=== PATIENT | female | born 1955 | race Caucasian/White ===

== ENCOUNTER → 2017-06-18 | Emergency (ER) | payer MEDICARE, SELFPAY ==
[~2017-06-18] VITALS: Ht 175.3 cm; Wt 95.2 kg
[~2017-06-18] MED LIST: AMBIEN10 MG PO; CLONAZEPAM1 MG PO; CLONIDINE HCL0.2 MG PO; CYMBALTA30 MG PO; GABAPENTIN400 MG PO; GEODON60 MG PO; HUMALOG100 UNITS/ IV; HYDROCODON-ACE1 EA10 PO; INSULIN SYRING MISC; IPRATROPIU0.2 MG/1 M INH; LANTUS100 UNITS/ SUB-Q; LEVALBUTER1.25 MG/3 INH; LEVEMIR100 UNIT/1 SUB-Q; LITHIUM CARBON300 MG PO; METHOCARBAMOL750 MG PO; MINIPRESS5 MG PO; MIRALAX17 GM PO; NOVOLOG100 UNITS/ IV; NOVOLOG100 UNITS/ SUB-Q; OXYCODONE HCL E10 MG PO; OXYCODONE HCL10 MG PO; QUETIAPINE FUM200 MG PO; VENTOLIN HFA18 GM INH; WELLBUTRIN SR100 MG PO; ZOLPIDEM TARTRAT5 MG PO
== END | disposition home or self-care (01) ==
LOC: ED 15:38
DX: M54.2 Cervicalgia (principal); M43.22 Fusion of spine, cervical region; E11.9 Type 2 diabetes mellitus without complications; Z90.49 Acquired absence of other specified parts of digestive tract; Z98.51 Tubal ligation status; Z90.710 Acquired absence of both cervix and uterus; Z79.4 Long term (current) use of insulin; W18.30XA Fall on same level, unspecified, initial encounter
CPT/HCPCS: 72125; 99284

== ENCOUNTER 2018-02-04 07:44 | Observation (INO) | payer MEDICARE ==
[~2018-02-04] VITALS: Ht 175.3 cm; Wt 85.5 kg
--- OUTSIDE RECORDS SUMMARY | ~2018-02-04 | XMS | Clinical Summary ---
Demographics + + + | Address | [address] | | | [place] [address] | + + + | Home Phone | | + + + | Preferred Language | Unknown | + + + | Marital Status | Single | + + + | Congregation Affiliation | UNK | + + + | Race | White | + + + | Ethnic Group | Not or | + + + Author + + + | Organization | Unknown | + + + | Address | Unknown | + + + | Phone | Unavailable | + + + Support + + +---------+ + | Name | Relationship | Address | Phone | + + +---------+ + | HARRY FLANAGAN | ECON | Unknown | | + + +---------+ + Care Team Providers + +------+ + | Care Acid Retort Operator Name | Role | Phone | + +------+ + PP | Unavailable | + +------+ + Source Comments DARCIE is fully live on both [facility] and [facility] InPatient.[facility] Allergies Not on File Current Medications Not on file Active Problems Not on file Social History + +-------+ +--------+------+ | Tobacco Use | Types | Packs/Day | Years | Date | | | | | Used | | + +-------+ +--------+------+ | Never Assessed | | | | | + +-------+ +--------+------+ + + + | Sex Assigned at | Date Recorded | | | | + + + | Not on file | | + + + Plan of Treatment + + + + + | Health Maintenance | Due Date | Last Done | Comments | + + + + + | INFLUENZA VACCINE | | | | | (FLU SHOT) | 8 | | | + + + + + Results Not on filefrom Last 3 Months"
--- OUTSIDE RECORDS SUMMARY | ~2018-02-04 | XMS | Clinical Summary ---
Demographics + + + | Address | [address] | | | [place] [address] | + + + | Home Phone | | + + + | Preferred Language | Unknown | + + + | Marital Status | Single | + + + | Taoism Affiliation | UNK | + + + [...] Team Providers + +------+ + | Care Pneumatic Tester Mechanic Name | Role | Phone | + +------+ + PP | Unavailable | + +------+ + Source Comments DARCIE is fully live on both [facility] and [facility] InPatient.[facility] Allergies Not on File Current Medications [...]
--- OUTSIDE RECORDS SUMMARY | ~2018-02-04 | XMS | Clinical Summary ---
Demographics + + + | Address | [address] | | | [place] [address] | + + + | Home Phone | | + + + | Preferred Language | Unknown | + + + | Marital Status | Single | + + + | Mandaeism Affiliation | UNK | + + + [...] Team Providers + +------+ + | Care Health And Safety Manager Name | Role | Phone | + +------+ + PP | Unavailable | + +------+ + Source Comments DARCIE is fully live on both [facility] and [facility] InPatient.[facility] Allergies Not on File Current Medications Not [...]
[~2018-02-04 07:44] MED LIST changes: -GEODON60 MG PO; +GEODON80 MG NG; +MINIPRESS2 MG PO; -MINIPRESS5 MG PO; -OXYCODONE HCL E10 MG PO
[2018-02-04] MEDS ORDERED: LANTUS100 UNITS/ SUB-Q (08:09)
[2018-02-04] MEDS ORDERED: HUMULIN R500 UNIT/1 SUB-Q (08:09)
--- NOTE | 2018-02-04 11:19 | NUR ---
PT UP TO BEDSIDE COMMODE WITH STANDBY ASSIST. PT DENIES NAUSEA AND SOB AT THIS TIME. PT STEADY ON HER FEET, ABLE TO TRANSFER SELF EASILY, BACK TO BED. CALL LIGHT WITHIN REACH.
--- NOTE | 2018-02-04 11:27 | NUR ---
PT ARRIVED TO ROOM 127 VIA STRECHER FROM ER. PT TRANSFERRED TO BED PER SELF. MONITOR ON AND VITAL SIGNS TAKEN. ASSESSMENT COMPLETED, PT C/O OF HEADACHE AND ORDER RECEIVED FOR TYLENOL 650 MG PO. NS RUNNING AT 125 MLS/HR PER ORDER. INSULIN GTT STARTED AT 5 UNITS/HR. PT ORIENTED TO ROOM AND CALL LIGHT.
--- NOTE | 2018-02-04 12:03 | NUR ---
ASSESSMENT COMPLETED. ACCU CHECK 296, INSULIN GTT DECREASED TO 7.5 UNITS/HR. PT EATING CLEAR LIQ DIET.
[2018-02-04] MEDS ORDERED: EFFEXOR XR75 MG PO (12:16)
[2018-02-04] MEDS ORDERED: LITHIUM CARBON300 MG PO (12:17)
[2018-02-04] MEDS ORDERED: LEVOTHYROXINE25 MCG PO (12:21)
--- NOTE | 2018-02-04 13:48 | NUR ---
ACCU CHECK AT 1300 184, DR. MERCER NOTIFIED AND ORDERS RECEIVED. IV STARTED IN LEFT HAND AND INSULIN GTT RUNNING AT 3.6 UNITS/HR. D5 NS RUNNING IN RIGHT HAND AT 125/HR.
--- NOTE | 2018-02-04 14:12 | NUR ---
ACCU CHECK 147, INSULING GTT DECREASED TO 1.8 UNITS/HR
--- NOTE | 2018-02-04 14:50 | NUR ---
MED REC COMPLETE--KEPT THE INSULINS ON THE LIST REFERENCE EVEN THOUGH PATIENT HAS NOT TAKEN SINCE LAST YEAR.
--- NOTE | 2018-02-04 15:00 | NUR ---
PT UP TO BSC VOIDED AND HAD LARGE SOFT BROWN BM AFTER DULCOLAX SUPP GIVEN.
--- NOTE | 2018-02-04 16:31 | NUR ---
ASSESSMENT COMPLETED STATES HEADACHE PAIN "12/09". PT RESTING WITH HOB ELEVATED. BOYFRIEND IN ROOM. REMAINS ON INSULIN GTT NOW AT 3 UNITS/HR.
--- NOTE | 2018-02-04 17:19 | NUR ---
DR. MERCER NOTIFIED OF ACCU CHECK 126 AND CHANGE IN INSULIN GTT DOSE - 1.4 UNITS/HR. NEW ORDER TO DC INSULIN GTT AT THIS TIME. LAB HERE FOR BMP AND ACETONE DRAW.
--- NOTE | 2018-02-04 18:18 | NUR ---
LABS RESULTS CALLED TO DR. MERCER. ACETONE NEGATIVE, GLUCOSE 124. ORDERS RECEIVED TO DC IVF. FLUIDS DC'D AND FLUSHED WITH SALINE.
--- NOTE | 2018-02-04 19:15 | NUR ---
HANDOFF REPORT RECEIVED FROM EMMANUEL ALEXANDER. PT LYING ON SIDE, BREATHING NON LABORED, RR 15. HR 65. WILL CONTINUE TO MONITOR.
--- NOTE | 2018-02-04 19:55 | NUR ---
RECEIVED REPORT FROM EMMANUEL BUCIO. PT IS RESTING IN BED AT THIS TIME. WILL TAKE OVER CARE AT THIS TIME AND CONTINUE TO CLOSELY MONITOR.
--- NOTE | 2018-02-04 20:10 | NUR ---
IN TO COMPLETE PT ASSESSMENT. PT IS VERY DROWSY. PT OPENS EYES TO NAME, BUT ONLY KEEPS THEM OPEN FOR 5-10 SECONDS. PT WAS ABLE TO SQUEEZE MY HANDS AND REPLIED "NO" WHEN I ASKED IF HER BOYFRIEND WAS COMING BACK IN TONIGHT. PT IS NOT AWAKE ENOUGH TO TAKE MEDICATIONS AT THIS TIME. CHECKED PT BLOOD SUGAR- 231. BED ALARM ON FOR PATIENT SAFETY. PT RR IS 14 WITH SPO2 95%. WILL CONTINUE TO CLOSELY MONITOR.
--- NOTE | 2018-02-04 20:15 | NUR ---
CALLED MD TO UPDATE REGUARDING PT STATUS. UPDATED THAT PT IS VERY DRWOSY AND WILL ONLY KEEP HER EYES OPEN FOR 5-10 SECONDS BEFORE SHE FALLS BACK TO SLEEP. PT IS NOT ALERT ENOUGH TO SAFELY TAKE ANYTHING ORALLY INCLUDING MEDICATIONS & FOOD. PER MD HOLD ALL MEDICATIONS AT THIS TIME. HOLD INSULIN UNTIL PATIENT CAN TAKE PO. MD PLACED ORDER FOR CPAP IF NEEDED, PT ON ADMISSION STATES SHE HAS SLEEP APNEA AND WEARS CPAP AT HOME SOMETIMES. PT BOYFRIEND WAS UNABLE TO FIND HER MACHINE. WILL CONTINUE TO CLOSELY MONITOR AND REASSES PO INTAKE WHEN PATIENT IS MORE ALERT.
--- NOTE | 2018-02-04 21:11 | NUR ---
PT SET OFF BED ALARM, WAS SITTING AT SIDE OF BED WHEN I ENTERED ROOM. UP TO BSC, STEADY ON FEET, VOIDED 900ML AND THEN RETURNED TO BED. BED ALARM ON FOR SAFETY. PT DENIES FURTHER REQUESTS.
--- NOTE | 2018-02-04 22:41 | NUR ---
PT RESTING IN BED AT THIS TIME. BED ALARM ON. RR-20, SPO2 95% ON RA. WILL CONTINUE TO CLOSELY MONITOR.
--- NOTE | 2018-02-05 00:36 | NUR ---
PT ASSESSMENT UNCHANGED FROM PREVIOUS ASSESSMENT. PT IS MORE AWAKE THAN PRIOR IN THE SHIFT, BUT REMAINS DROWSY AND FALLS BACK TO SLEEP EASILY. WILL CONTINUE TO ENCOURAGE REST AT THIS TIME. BED ALARM ON AT THIS TIME FOR PATIENT SAFETY.
--- NOTE | 2018-02-05 02:00 | NUR ---
SALVAGE MACHINE OPERATOR IN TO DO LAB DRAW. PATIENT TOLERATED WELL. PT BACK TO SLEEP. PT MORE AWAKE THIS AM. WILL CONTINUE TO CLOSELY MONITOR.
--- NOTE | 2018-02-05 04:00 | NUR ---
PT WOKE AND CALLED TO HAVE FRESH WATER. PT STATES "I FEEL THE BEST I HAVE IN MONTHS, AND I WAS ABLE TO SLEEP". PT ASKING TO HAVE PHONE AT BEDSIDE. PT DENIES ANY QUESTIONS. WILL CONTINUE TO CLOSELY MONITOR AT THIS TIME.
--- NOTE | 2018-02-05 05:30 | NUR ---
PT UP TO BEDSIDE CAMMODE. PT IS VERY TALKATIVE THIS MORNING AND HOPEFUL TO GO HOME TODAY. PT DENIES ANY PAIN OR ISSUES AT THIS TIME. PT IS VERY THANKFUL FOR CARE AND PLEASANT. WILL CONTINUE TO CLOSELY MONITOR.
--- NOTE | 2018-02-05 06:01 | NUR ---
CALLED MD TO UPDATE REGUARDING PATIENTS STATUS THIS AM. PT IS AWAKE, ALERT, AND ORIENTED. PT IS ASKING WHEN THE DOCTOR WILL BE IN, SHE IS LOOKING FORWARD TO GOING HOME. PT BLOOD SUGAR 270'S, PER MD GIVE MORNING LEVIMIR AT THIS TIME. WILL CONTINUE TO CLOSELY MONITOR.
--- NOTE | 2018-02-05 07:30 | NUR ---
PT RESTING IN BED. BREAKFAST ORDERED. PT ASSISTED TO BATHROOM TO FRESHEN UP, REQUESTING TO TAKE SHOWER. PT STEADY WHILE AMBULATING. L & R HAND IV SITES ARE SALINE LOCKED AND FLUSH WELL. DISCUSSED MEDICATIONS AND DIETARY NEEDS.
--- NOTE | 2018-02-05 07:50 | NUR ---
DR. MERCER AT BEDSIDE
--- NOTE | 2018-02-05 09:00 | NUR ---
DISCUSSED WITH PT POSSIBLE [facility] SERVICE AVAILABLE TO HER. PROVIDED POINT OF CONTACT FOR ENROLLMENT OFFICE TO VERIFY ELIGIBILITY. DISCUSSED POSSIBLE COVERAGE THROUGH LOCAL [facility] AND POSSIBLE PHARMACY COVERAGE IF ELIGIBLE.
--- NOTE | 2018-02-05 10:25 | NUR ---
PT IN BED AND TALKING TO FAMILY MEMBER ON PHONE.
--- NOTE | 2018-02-05 12:28 | NUR ---
PT IS IN BED AND FAMILY MEMBERS AT BEDSIDE. UPDATED PT ON TRANSFER DELAY TO MED SURG FLOOR.
--- NOTE | 2018-02-05 13:49 | NUR ---
PT RESTING IN BED, ALERT AND ORIENTED. PT IS FEELING BETTER, FELT FREE TO DISCUSS HER LIFE WITH ME. PT FEELS A NEED TO BE DC'D SOON-HER BOYFRIEND IS ON DIALYSIS, AND SHE WANTS TO BE HELPING HIM. DISCUSSED THE TIMES SHE FEELS SHE IS "ALONE", AND WHAT HAPPENS TO HER IN THOSE MOMENTS. PT SEEMS TO HAVE BASIC MELODY IN GOD, SHARED SEVERAL BIBLE VERSES ON GOD'S PROMISE TO ALWAYS BE WITH US. EMOTIONAL REASONING IS AN ISSUE THAT TOO OFTEN SEEMS TO GUIDE HER THOUGHTS AND LEADS TO TOXIC DECISIONS. PRAYED WITH PT, SHE THANKED ME, WILL CONTINUE TO FOLLOW NEEDED
--- NOTE | 2018-02-05 15:56 | NUR ---
PT RESTING IN BED, C/O OF HEAD/NECK DISCOMFORT "02/06". MEDICATED WITH OXYCODONE 10 MG PO. ACCU CHECK 214.
--- NOTE | 2018-02-05 16:24 | NUR ---
AMBULATED TO SHOWER ROOM, AFTER SHOWERING PT AMBULATED BACK TO ROOM. ORAL CARE COMPLETED BY PT. PT RESTING IN CHAIR. VITAL SIGNS COMPLETED.
--- NOTE | 2018-02-05 18:04 | NUR ---
PT ARRIVED FROM CCU. REPORT TAKEN. ASSESSMENT DONE. PT ORIENTED TO ROOM AND HOW TO USE BED, CONTROLS, AND PHONE. PT VERBALIZES UNDERSTANDING. PT REPORTS FEELING "A LITTLE SWEETY." BLOOD SUGAR TAKEN AND FOUND TO BE 315. CCU RN CONSULTED AND STATES PT JUST RECIEVED INSULIN AND WILL BE FINE UNTIL NEXT DOSE AT BEDTIME. PT SITUATES SELF IN BED. BED RAILS UP X2. CALL LIGTH WITHIN REACH. PT BELONGINGS WITHIN REACH.
--- NOTE | 2018-02-05 18:42 | NUR ---
PT TRANSFERED TODAY TO MED/SURG AT 1800. HERE FOR DKA. INDEPENDANT IN ROOM, ADA DIET. PIV IN RIGHT AND LEFT HAND, SL. CBGS AT MEALS, BED TIME AND PRN. HX OF PERSONALITY DISORDER, MEDICATIONS INCLUDE LITHIUM. FREQUENT BACK AND NECK PAIN, PRN OXY. SENNA GIVEN TODAY. PT USES CALL LIGHT APPROPRIATLY.
--- NOTE | 2018-02-05 19:00 | NUR ---
RECEIVED REPORT FROM RN. PATIENT IS RESTING IN BED, BREATHING IS EVEN AND UNLABORED. REPORTS 2/10 PAIN IN HEAD AND NECK, DENIES NEED FOR PAIN MEDICATION AT THIS TIME. CALL LIGHT WITHIN REACH.
--- NOTE | 2018-02-05 22:00 | NUR ---
PATIENT RESTING IN BED, REPORTS 5/10 PAIN IN HEAD AND NECK, PRN TYLENOL AND OXYCODONE GIVEN PER EMAR. DENIES FURTHER NEEDS. ASSESSMENT DONE, CALL LIGHT WITHIN REACH.
--- NOTE | 2018-02-05 22:05 | NUR ---
PATIENT RESTING IN BED, BREATHING IS EVEN AND UNLABORED. REPORTS 5/10 PAIN IN NECK AND HEAD, PRN TYLENOL AND OXYCODONE GIVEN PER EMAR. DENIES FURTHER NEEDS. ASSESSMENT AND VITALS DONE. CALL LIGHT WITHIN REACH, VISITOR AT BEDSIDE.
--- NOTE | 2018-02-06 02:50 | NUR ---
PATIENT RESTING IN BED, BREATHING IS EVEN AND UNLABORED. FLACC SCORE OF 0. CALL LIGHT WITHIN REACH.
--- NOTE | 2018-02-06 04:02 | NUR ---
PATIENT RESTING IN BED, BREATHING IS EVEN AND UNLABORED. FLACC SCORE OF 0. APPEARS TO BE ASLEEP. CALL LIGHT WITHIN REACH.
--- NOTE | 2018-02-06 04:49 | NUR ---
PATIENT CALLED WANTING ROOM TEMP UP, WARM BLANKET PROVIDED.
--- NOTE | 2018-02-06 06:07 | NUR ---
PATIENT RESTING IN BED, REPORTS 5/10 PAIN IN HEAD AND NECK, PRN OXYCODONE AND TYLENOL GIVEN. DENIES FURTHER NEEDS. CALL LIGHT WITHIN REACH.
--- NOTE | 2018-02-06 07:24 | NUR ---
BEDSIDE REPORT FROM NIKOLAY, PT APPEARED TO BE SLEEPING, PT ALERT TO NURSES IN ROOM. PT ALERT AND ORIENTED. NO CONCERNS WITH CARE, PT REPORTS PAIN IS WELL MANAGED AT THIS TIME.
--- NOTE | 2018-02-06 07:30 | NUR ---
PATIENT RESTING IN BED, EYES CLOSED. PATIENT STATED SHE SLEPT WELL LAST NIGHT, AND DISCUSSED TAKING A SHOWER LATER IN THE DAY. CALL LIGHT IN REACH. NO OTHER NEEDS AT THIS TIME.
--- NOTE | 2018-02-06 08:43 | NUR ---
PATIENT RESTING IN BED ON THE PHONE. CALL LIGHT WITHIN REACH. NO OTHER NEEDS AT THIS TIME.
[2018-02-06] MEDS ORDERED: NOVOLIN N100 UNIT/1 SUB-Q (09:01)
[2018-02-06] MEDS ORDERED: INSULIN SYRING1 EA11 MISC (09:02)
[2018-02-06] MEDS ORDERED: HUMULIN R100 UNIT/1 INJ (09:06)
--- NOTE | 2018-02-06 10:00 | NUR ---
DAVID WITH PHARMACY AND THIS RN IN ROOM TO GIVE EDUCATION ON INSULIN. THIS RN GAVE EDUCAITON AND WROTE LAST DOSE NEXT DOSE ON DISCHARGE PAPERS. DISCUSSED [facility] PT RESOURCES IN COMMUNITY IF ANY SIGNS OR SYMPTOMS DEVELOPE THAT SHE NEEDS TO SEEK MEDICAL ASSISTANCE ([facility] OR [facility] AMUBLANCE IF EMERGENT OR TAXI TO [facility]. TO FOLLOW DISCHARGE INSTRUCTIONS TO MONITOR BLOOD GLUCOSE CHECKS CLOSELY AND ADMINSTER INSULIN ORDERED. PT REPORTS FEELING EMOTIONAL, AND IS CRYING. RN GAVE SUPPORTIVE EDUCAITON ON PAST CARE PLAN AND CURRENT CARE PLAN. SHE REPORTS FEELING A LOT BETTER AND CONFIDENT SHE WILL BE ABLE TO MANAGE HER CARE AT HOME. NO OTHER CONCERNS VOICED, PT ABLE TO VERBALIZE INSTRUCTIONS BACK. I.V. SITE OUT TIP INTACT WNL. PT REQUESTED TO AMBULATE TO FRONT OF HOSPITAL FOR TAXI CARE RIDE.
--- NOTE | 2018-02-06 10:00 | NUR ---
GAVE PT A GOOD RX CARD AND GAVE HER THE CASE MANAGEMENT PHONE NUMBER IN CASE THERE IS SOMETHING ELSE I CAN HELP HER WITH.
--- NOTE | 2018-02-06 10:10 | NUR ---
PT REQUEST BLOOD GLUCOSE CHECK, THIS IS DONE 384 READING. NOTIFIED. ORDER TO GIVE COVERAGE FROM SLIDING [employer] AND DISCHARGE PATIENT. 13 UNITS ASPART ADMINISTERED AND PT DISCHARGED PER MD ORDER
== END 2018-02-06 10:15 | disposition home or self-care (01) ==
LOC: ED 07:44 → CCU 07:46 → MS 02-05 17:40
PROVIDERS: ADMIT Internal Medicine
DX: E10.10 Type 1 diabetes mellitus with ketoacidosis without coma (principal); F60.3 Borderline personality disorder; M50.20 Other cervical disc displacement, unspecified cervical region; M51.26 Other intervertebral disc displacement, lumbar region; M79.7 Fibromyalgia; F51.04 Psychophysiologic insomnia; G89.4 Chronic pain syndrome; Z66 Do not resuscitate; Z88.8 Allergy status to other drugs, medicaments and biological substances; Z91.14 Patient's other noncompliance with medication regimen; Z98.1 Arthrodesis status; Z79.891 Long term (current) use of opiate analgesic; Z79.899 Other long term (current) drug therapy
CPT/HCPCS: 36415; 80048; 80053; 81001; 82010; 83690; 83735; 84100; 85025; 96361; 96372; 96374; 99285; G0378; J1650; J7030

== ENCOUNTER 2018-04-02 18:49 | Emergency (ER) | payer MEDICARE ==
[~2018-04-02] VITALS: Ht 175.3 cm; Wt 85.5 kg
[~2018-04-02 18:49] MED LIST changes: +EFFEXOR XR75 MG PO; +HUMULIN R100 UNIT/1 INJ; +HUMULIN R500 UNIT/1 SUB-Q; +INSULIN SYRING1 EA11 MISC; +LEVOTHYROXINE25 MCG PO; +NOVOLIN N100 UNIT/1 SUB-Q
[2018-04-02] MEDS ORDERED: HUMULIN R500 UNIT/1 SUB-Q (19:02)
[2018-04-02] MEDS ORDERED: LANTUS100 UNITS/ SUB-Q (19:04)
--- NOTE | 2018-04-02 21:12 | EKG ---
[facility] [address] [place] [address] Signed Normal sinus rhythm Septal infarct , age undetermined Abnormal ECG When compared with ECG of 22-NOV-2016 02:11, Septal infarct is now present Confirmed by PATRIA SHIRLEY MD ([id number]) on 04/02/2018 9:12:29 PM Electronically Signed By: PATRIA SHIRLEY MD 04/02/18 2112 PATIENT NAME: JAMES ENNIS BRYON Electrocardiogram DATE OF : 59 PHYSICIAN: PATRIA SHIRLEY MD REPORT #: [id number] REPORT IS CONFIDENTIAL AND NOT TO BE RELEASED WITHOUT AUTHORIZATION
== END 2018-04-02 22:08 | disposition home or self-care (01) ==
LOC: ED 18:49
DX: R07.89 Other chest pain (principal); E11.9 Type 2 diabetes mellitus without complications; Z88.8 Allergy status to other drugs, medicaments and biological substances; Z79.4 Long term (current) use of insulin; Z79.899 Other long term (current) drug therapy
CPT/HCPCS: 71045; 80053; 84484; 85025; 85379; 93005; 93010; 99284

== ENCOUNTER 2018-04-22 16:27 | Emergency (ER) | payer MEDICARE ==
[~2018-04-22] VITALS: Ht 175.3 cm; Wt 90.7 kg
== END 2018-04-22 16:41 | disposition home or self-care (01) ==
LOC: ED 16:27
DX: M79.672 Pain in left foot (principal)

== ENCOUNTER 2018-05-01 18:33 | Emergency (ER) | payer MEDICARE ==
[~2018-05-01] VITALS: Ht 175.3 cm; Wt 90.7 kg
[2018-05-01] MEDS ORDERED: GEODON80 MG NG (19:17)
[2018-05-01] MEDS ORDERED: WELLBUTRIN SR100 MG PO (19:17)
== END 2018-05-01 22:01 | disposition home or self-care (01) ==
LOC: ED 18:33
DX: L03.116 Cellulitis of left lower limb (principal); E11.65 Type 2 diabetes mellitus with hyperglycemia; Z91.14 Patient's other noncompliance with medication regimen; Z88.8 Allergy status to other drugs, medicaments and biological substances; Z79.4 Long term (current) use of insulin; Z79.899 Other long term (current) drug therapy
CPT/HCPCS: 36415; 73630; 80053; 85025; 99283; J1815

== ENCOUNTER 2019-08-20 18:13 | Emergency (ER) | payer MEDICARE, SELFPAY ==
[~2019-08-20] VITALS: Ht 175.3 cm; Wt 90.7 kg
--- OUTSIDE RECORDS SUMMARY | ~2019-08-20 | XMS | Clinical Summary ---
Demographics + + + | Address | [address] | | | [address] | | | [place] [address] | + + + | Home Phone | | + + + | Preferred Language | Unknown | + + + | Marital Status | | + + + | Oriental Orthodox Affiliation | 1013 | + + + | Race | Unknown | + + + | Ethnic Group | Unknown | + + + Author + + + | Author | [facility] | | | and [place] | + + + | Organization | [facility] | | | and [place] | + + + | Address | Unknown | + + + | Phone | Unavailable | + + + Support + + +---------+ + | Name | Relationship | Address | Phone | + + +---------+ + | Aracelis May | ECON | Unknown | | + + +---------+ + Care Team Providers + +------+ + | Care Certified Rehabilitation Counselor Name | Role | Phone | + +------+ + | Juan De La Rosa MD | PCP | | + +------+ + Allergies + + + + + + | Active Allergy | Reactions | Severity | Noted | Comments | | | | | Date | | + + + + + + | Statins | | | 09/21/20 | | | | | | 18 | | + + + + + + Medications No known medications Active Problems Not on file Social History + +-------+ +--------+------+ | Tobacco Use | Types | Packs/Day | Years | Date | | | | | Used | | + +-------+ +--------+------+ | Never Smoker | | | | | + +-------+ +--------+------+ + +---+---+---+ | Smokeless Tobacco: | | | | | Never Used | | | | + +---+---+---+ + + +---------+ + | Alcohol Use | Drinks/We | oz/Week | Comments | | | ek | | | + + +---------+ + | No | | | | + + +---------+ + + + + | Sex Assigned at | Date Recorded | | | | + + + | Not on file | | + + + + + + + | Job Start Date | Occupation | Industry | + + + + | Not on file | Not on file | Not on file | + + + + + + + + | Travel History | Travel Start | Travel End | + + + + + + | No recent travel history available. | + + Last Filed Vital Signs + + + + | Vital Sign | Reading | Time Taken | + + + + | Blood Pressure | 152/83 | 09/21/20181732 PST | + + + + | Pulse | 71 | 09/21/20181732 PST | + + + + | Temperature | 37.1 C (98.8 F) | 09/21/20181610 PST | + + + + | Respiratory Rate | 16 | 09/21/20181732 PST | + + + + | Oxygen Saturation | 100% | 09/21/20181732 PST | + + + + | Inhaled Oxygen | - | - | | Concentration | | | + + + + | Weight | 90.7 kg (200 lb) | 09/21/20181415 PST | + + + + | Height | 175.3 cm (5' 9") | 09/21/20181415 PST | + + + + | Body Mass Index | 29.53 | 09/21/20181415 PST | + + + + Plan of Treatment + + + + + | Health Maintenance | Due Date | Last Done | Comments | + + + + + | Hepatitis C | | | | | Screening | 8 | | | + + + + + | Vaccine: | | | | | Dtap/Tdap/Td (1 - | 7 | | | | Tdap) | | | | + + + + + | Cervical Cancer | | | | | Screening (Pap) | 8 | | | + + + + + | Colorectal Cancer | | | | | Screening | 8 | | | | (Colonoscopy) | | | | + + + + + | Vaccine: Zoster (1 | | | | | of 2) | 8 | | | + + + + + | Breast Cancer | | | | | Screening | 3 | | | + + + + + | Adult Annual | | | | | Wellness Visit | 8 | | | + + + + + | Vaccine: Influenza | | | | | (#1) | 9 | | | + + + + + Results Not on filefrom Last 3 Months Insurance + +--------+ +--------+ +---------+--------+ | Payer | Benefi | Subscriber | Effect | Phone | Address | Type | | | t Plan | ID | yury | | | | | | / | | Dates | | | | | | Group | | | | | | + +--------+ +--------+ +---------+--------+ | [employer] | HEALTH | [id number] | 10/30/19 | [phone] | | Medica | | | NET | 1 | 18-Pre | 1 | | re | | | MDCR | | sent | | | | | | PPO | | | | | | + +--------+ +--------+ +---------+--------+ + +--------+ +--------+ + + | Guarantor Name | Accoun | Relation to | Date | Phone | Billing Address | | | t Type | Patient | of | | | | | | | | | | + +--------+ +--------+ + + | Albertina Graves | Person | Self [birth year] | [address] | | | al/Fam | | 1956 | [phone] | [address] | | | antione | | | 0 (Home) | [place] [address] | + +--------+ +--------+ + + Advance Directives Patient has advance care planning documents on file. For more information, please contact:[facility] and [facility] [place] [address]
--- OUTSIDE RECORDS SUMMARY | ~2019-08-20 | XMS | Clinical Summary ---
Demographics + + + | Address | [address] | | | [place] [address] | + + + | Home Phone | | + + + | Preferred Language | Unknown | + + + | Marital Status | | + + + | Baptist Affiliation | UNK | + + + | Race | White | + + + | Ethnic Group | Not or | + + + Author + + + | Author | [facility] | + + + | Organization | [facility] | + + + | Address | Unknown | + + + | Phone | Unavailable | + + + Support + + +---------+ + | Name | Relationship | Address | Phone | + + +---------+ + | Nitish Case | ECON | Unknown | | + + +---------+ + Care Team Providers + +------+ + | Care Tricot Knitter Name | Role | Phone | + +------+ + | No Pcp Per Patient | PCP | Unavailable | + +------+ + Source Comments DARCIE is fully live on both [facility] Amb[facility] and [facility] InPatient.[facility] Allergies + + + + + + | Active Allergy | Reactions | Severity | Noted | Comments | | | | | Date | | + + + + + + | Zyiyflf-Ubd-Vad | Flushing | | 09/21/20 | Flu like symptoms | | Reductase Inhibitors | | | 18 | | + + + + + + Medications + + + +---------+------+------+-------+ | Medication | Sig | Dispensed | Refills | Star | End | Statu | | | | | | t | Date | s | | | | | | Date | | | + + + +---------+------+------+-------+ | oxyCODONE | Take 10 mg by mouth | | 0 | 04/1 | | Activ | | (immediate release) | every six hours as | | | 5/20 | | e | | 10 mg oral tablet | needed. | | | 19 | | | + + + +---------+------+------+-------+ | erythromycin 5 | Instill into both | | 1 | 04/0 | | Activ | | mg/gram (0.5 %) | eyes three times | | | 3/20 | | e | | ophthalmic (eye) | daily. | | | 19 | | | | ointment | | | | | | | + + + +---------+------+------+-------+ | metFORMIN 500 mg | Take 1,000 mg by | | 10 | 03/2 | | Activ | | oral tablet | mouth two times | | | 20 | | e | | | daily. | | | 19 | | | + + + +---------+------+------+-------+ | HUMULIN R U-500 | Inject 120 Units | | 1 | 04/ | | Activ | | (CONC) KWIKPEN 500 | under the skin | | | 2/20 | | e | | unit/mL (3 mL) | (SUBC) two times | | | 19 | | | | subcutaneous insulin | daily. | | | | | | | pen | | | | | | | + + + +---------+------+------+-------+ | prazosin 2 mg oral | Take 2 mg by mouth | | 0 | 03/2 | | Activ | | capsule | once daily. | | | 07/19 | | e | | | | | | 19 | | | + + + +---------+------+------+-------+ | ezetimibe 10 mg | Take 10 mg by mouth | | 9 | 02/ | | Activ | | oral tablet | once daily. | | | 11/18 | | e | | | | | | 19 | | | + + + +---------+------+------+-------+ | clonazePAM 1 mg | Take 1 mg by mouth | | 2 | 03/1 | | Activ | | oral tablet | as needed. | | | 03/18 | | e | | | | | | 19 | | | + + + +---------+------+------+-------+ | primidone 50 mg | Take 150 mg by mouth | | 5 | 01/28 | | Activ | | oral tablet | two times daily. | | | 05/18 | | e | | | | | | 19 | | | + + + +---------+------+------+-------+ | lithium carbonate | Take 300 mg by mouth | | 2 | 03/2 | | Activ | | 300 mg oral capsule | once daily in the | | | 07/19 | | e | | | evening. | | | 19 | | | + + + +---------+------+------+-------+ | venlafaxine XR 150 | Take 150 mg by mouth | | 2 | 03/2 | | Activ | | mg oral | once daily. | | | 07/19 | | e | | capsule,extended | | | | 19 | | | | release 24hr | | | | | | | + + + +---------+------+------+-------+ | venlafaxine XR 75 | Take 75 mg by mouth | | 2 | 03/2 | | Activ | | mg oral | once daily. | | | 07/19 | | e | | capsule,extended | | | | 19 | | | | release 24hr | | | | | | | + + + +---------+------+------+-------+ | ziprasidone 80 mg | Take 80 mg by mouth | | 2 | 04/0 | | Activ | | oral capsule | once daily in the | | | 01/16 | | e | | | evening. | | | 19 | | | + + + +---------+------+------+-------+ | zolpidem 10 mg | Take 10 mg by mouth | | 2 | 04/0 | | Activ | | oral tablet | once daily in the | | | 11/18 | | e | | | evening. | | | 19 | | | + + + +---------+------+------+-------+ | levothyroxine 25 | Take 25 mcg by mouth | | 0 | 04/0 | | Activ | | mcg oral tablet | once daily. 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 | + + + Family History + + +------+ + | Medical History | Relation | Name | Comments | + + +------+ + | Diabetes | Father | | | + + +------+ + | Leukemia | Father | | | + + +------+ + | Liver cancer | Father | | | + + +------+ + | Diabetes | Maternal | | | | | Grandfath | | | | | er | | | + + +------+ + | Diabetes | Maternal | | | | | Grandmoth | | | | | er | | | + + +------+ + | Diabetes | Mother | | | + + +------+ + | Heart Disease | Mother | | | + + +------+ + | Cancer | Paternal | | | | | Grandfath | | | | | er | | | + + +------+ + | Diabetes | Paternal | | | | | Grandfath | | | | | er | | | + + +------+ + | Diabetes | Paternal | | | | | Grandmoth | | | | | er | | | + + +------+ + + +------+--------+ + | Relation | Name | Status | Comments | + +------+--------+ + | Father | | | | + +------+--------+ + | Maternal Grandfather | | | | + +------+--------+ + | Maternal Grandmother | | | | + +------+--------+ + | Mother | | | | + +------+--------+ + | Paternal Grandfather | | | | + +------+--------+ + | Paternal Grandmother | | | | + +------+--------+ + Social History + +-------+ +--------+------+ | Tobacco [...] + +---------+ + | Alcohol Use | Drinks/Week | oz/Week | Comments | + + +---------+ + | No [...] Filed Vital Signs + + + + + | Vital Sign | Reading | Time Taken | Comments | + + + + + | Blood Pressure | 125/64 | 02/15/2019 9:35 AM | | | | | PDT | | + + + + + | Pulse | 77 | 02/15/2019 9:35 AM | | | | | PDT | | + + + + + | Temperature | - | - | | + + + + + | Respiratory Rate | 16 | 02/15/2019 9:35 AM | | | | | PDT | | + + + + + | Oxygen Saturation | 100% | 02/15/2019 9:35 AM | | | | | PDT | | + + + + + | Inhaled Oxygen | - | - | | | Concentration | | | | + + + + + | Weight | 91.5 kg (201 lb 12.8 | 02/15/2019 9:35 AM | | | | oz) | PDT | | + + + + + | Height | 172.7 cm (5' 8") | 02/15/2019 9:35 AM | | | | | PDT | | + + + + + | Body Mass Index | 30.68 | 02/15/2019 9:35 AM | | | | | PDT | | + + + + + Plan of Treatment + + + + + | Health Maintenance | Due Date | Last Done | Comments | + + + + + | Influenza (Flu) | | 09/06/2018, 07/20/2015, | | | vaccination (#1) | 9 | 08/25/2014, Additional history | | | | | exists | | + + + + + | Pneumococcal | Aged Out | | No longer eligible | | vaccination | | | based on patient's | | | | | age to complete this | | | | | topic | + + + + + Results Not on filefrom Last 3 Months Insurance + +--------+ +--------+ + +------+ | Payer | Benefi | Subscriber | Effect | Phone | Address | Type | | | t Plan | ID | yury | | | | | | / | | Dates | | | | | | Group | | | | | | + +--------+ +--------+ + +------+ | [employer] OPT | HEALTH | [phone] | 10/30/19 | [phone] | [address] | PPO | | MEDICARE | NET | | 19-Pre | 3 | [phone] | | | | MEDICA | | sent | | [place], | | | | RE PPO | | | | [place] | | | | | | | | [phone] | | + +--------+ +--------+ + +------+ + +--------+ +--------+ + + | Guarantor Name | Accoun | Relation to | Date | Phone | Billing Address | | | t Type | Patient | of | | | | | | | | | | + +--------+ +--------+ + + | Albertina Graves | Person | Self | [birth year] | [address] | | [place] | al/Fam | | 1956 | [phone] | [place] | | | antione | | | 0 (Home) | [id number] | + +--------+ +--------+ + +
--- OUTSIDE RECORDS SUMMARY | ~2019-08-20 | XMS | Encounter Summary ---
Demographics + + + | Address | [address] | | | [place] [address] | + + + | Home Phone | | + + + | Preferred Language | Unknown | + + + | Marital Status | | + + + | Muslim Affiliation | UNK | + + + | Race | White | + + + | Ethnic Group | Not or | + + + Author + + + | Author | [facility] | + + + | Organization | [facility] | + + + | Address | Unknown | + + + | Phone | Unavailable | + + + Support + + +---------+ + | Name | Relationship | Address | Phone | + + +---------+ + | Nitish Case | ECON | Unknown | | + + +---------+ + Care Team Providers + +------+ + | Care Music Worker Name | Role | Phone | + +------+ + | No Pcp Per Patient | PCP | Unavailable | + +------+ + Reason for Visit + + + | Reason | Comments | + + + | Surgery Questions | | + + + Encounter Details +--------+ + + + + | Date | Type | Department | Care Team | Description | +--------+ + + + + | 02/27/ | Telephone | Plastic and | Law Okeefe MD | Surgery Questions | | 2019 | | Reconstructive | [address] | | | | | Surgery at [facility] | [place], [place] | | | | | [address] | [address] | | | | | Mailcode: [facility] | [phone] | | | | | [facility] | | | | | | jarrod [place], | | | | | | [facility] | | | | | | [place], [place] | | | | | | [address] | | | | | | [phone] | | | +--------+ + + + + Social History + +-------+ +--------+------+ | [...] recent travel history available. | + + documented as of this encounter Plan of Treatment Not on filedocumented as of this encounter Visit Diagnoses Not on filedocumented in this encounter"
--- OUTSIDE RECORDS SUMMARY | ~2019-08-20 | XMS | Clinical Summary ---
Demographics + + + | Address | [address] | | | [address] | | | [place] [address] | + + + | Home Phone | | + + + | Preferred Language | Unknown | + + + | Marital Status | | + + + | Tenriism Affiliation | 1013 | + + + | Race | Unknown | + + + | Ethnic Group | Unknown | + + + Author + + + | Author | [facility] | | | and [place] | + + + | Organization | [facility] | | | and [...] Team Providers + +------+ + | Care Motor Coach Bus Driver Name | Role | Phone | + [...] +---------+--------+ | [employer] MEDICARE | HEALTH | [id number] | 10/30/19 | [phone] | | Medica [...] | | 0 (Home) | [place] [id number] | + +--------+ +--------+ + + Advance Directives Patient has advance care planning documents on file. For more information, please contact:[facility] [place] [address]
--- OUTSIDE RECORDS SUMMARY | ~2019-08-20 | XMS | Encounter Summary ---
Demographics + + + | Address | [address] | | | [place] [address] | + + + | Home Phone | | + + + | Preferred Language | Unknown | + + + | Marital Status | | + + + | Samaritan Affiliation | UNK | + + + | Race | White | + + + | Ethnic Group | Not or | + + + Author + + + | Author | [facility] | + + + | Organization | [facility] | + + + | Address | Unknown | + + + | Phone | Unavailable | + + + Support + + +---------+ + | Name | Relationship | Address | Phone | + + +---------+ + | Nitish Case | ECON | Unknown | | + + +---------+ + Care Team Providers + +------+ + | Care Explosives Mixer Operator Name | Role | Phone | + +------+ + PCP | Unavailable | + +------+ + Encounter Details +--------+ + + + + | Date | Type | Department | Care Team | Description | +--------+ + + + + | 11/09/ | Results | Endocrinology, | Dandre Polo MD | | | 2000 | Only | Diabetes and | [address] | | | | | Clinical Nutrition | [address] | | | | | [address] | [place], [place] | | | | | Rachel Mcduffie Mailcode: | [id number] | | | | | [facility] | [phone] | | | | | Clinic Building | | | | | | [place], [place] | | | | | | [address] | | | | | | [phone] | | | +--------+ + + + [...] Not on filedocumented as of this encounter Procedures + +--------+ + + + | Procedure Name | Priori | Date/Time | Associated Diagnosis | Comments | | | ty | | | | + +--------+ + + + | INSULIN ANTIBODY, | Routin | 11/09/2000 | | Results for this | | SERUM | e | 4:23 PM | | procedure are in the | | | | PST | | results section. | + +--------+ + + + | C-PEPTIDE, SERUM | Routin | 11/09/2000 | | Results for this | | | e | 4:23 PM | | procedure are in the | | | | PST | | results section. | + +--------+ + + + | INSULIN GROWTH | Routin | 11/09/2000 | | Results for this | | FACTOR-1, SERUM | e | 4:23 PM | | procedure are in the | | | | PST | | results section. | + +--------+ + + + | TESTOSTERONE, SERUM | Routin | 11/09/2000 | | Results for this | | | e | 4:23 PM | | procedure are in the | | | | PST | | results section. | + +--------+ + + + | INSULIN, SERUM | Routin | 11/09/2000 | | Results for this | | | e | 4:23 PM | | procedure are in the | | | | PST | | results section. | + +--------+ + + + | CORTISOL, SERUM | Routin | 11/09/2000 | | Results for this | | | e | 4:23 PM | | procedure are in the | | | | PST | | results section. | + +--------+ + + + documented in this encounter Results INSULIN ANTIBODY (11/09/2000 4:23 PM PST) + +-------+ + + + | Component | Value | Ref Range | Performed | Pathologist | | | | | At | Signature | + +-------+ + + + | INSULIN | < 2.0 | <5.1 U/mL | | | | ANTIBODIES | | | | | + +-------+ + + + + + | Specimen | + + | | + + + + + + + | Performing | Address | City/State/Zipcode | Phone Number | | Organization | | | | + + + + + | [facility] | [address] | [place], [place] | | | | | [address] | | + + + + + C-PEPTIDE (11/09/2000 4:23 PM PST) + + + + + + | Component | Value | Ref Range | Performed | Pathologist | | | | | At | Signature | + + + + + + | C-PEPTIDE, | 5.10 (H)Comment: | 0.40 - 2.10 | | | | SERUM | Adult - 2 hours | ng/mL | | | | | Post Sustacal: | | | | | | (1.2-3.4) | | | | | | ng/mL | | | | | | Adult - 2 hours Post | | | | | | Glucose: (2.0-4.5) | | | | | | ng/mL | | | | + + + + + + + + | Specimen | + + | | + + + + + + + | Performing | Address | City/State/Zipcode | Phone Number | | Organization | | | | + + + + + | [facility] | [address] | [place], [place] | | | | | [address] | | + + + + + INSULIN, SERUM (11/09/2000 4:23 PM PST) + + + + + + | Component | Value | Ref Range | Performed | Pathologist | | | | | At | Signature | + + + + + + | INSULIN | 69.0 (H)Comment: | <17.1 uU/mL | | | | | 4-12 hr Fast: | | | | | | Prepubertal | | | | | | < 2-13 uU/mL | | | | | | (Mean=5.9) | | | | | | Adults < | | | | | | 2-17 uU/mL | | | | | | (Mean=7.0) | | | | | | 2 hr Post Sustacal: | | | | | | Adults | | | | | | 7.6-26 uU/mL | | | | | | (Mean=15) | | | | | | 2 hr Post Glucose: | | | | | | Adults | | | | | | 15-53 uU/mL | | | | | | (Mean=31) | | | | + + + + + + + + | Specimen | + + | | + + + + + + + | Performing | Address | City/State/Zipcode | Phone Number | | Organization | | | | + + + + + | [facility] | [address] | [place], [place] | | | | | [address] | | + + + + + TESTOSTERONE (11/09/2000 4:23 PM PST) + +-------+ + + + | Component | Value | Ref Range | Performed | Pathologist | | | | | At | Signature | + +-------+ + + + | TESTOSTERON | 39 | <86 ng/dl | | | | E, SERUM | | | | | + +-------+ + + + + + | Specimen | + + | | + + + + + + + | Performing | Address | City/State/Zipcode | Phone Number | | Organization | | | | + + + + + | [facility] | [address] | [place] [address] | | | LABORATORY | | | | + + + + + CORTISOL, SERUM (11/09/2000 4:23 PM PST) + +-------+ + + + | Component | Value | Ref Range | Performed | Pathologist | | | | | At | Signature | + +-------+ + + + | CORTISOL, | 17 | 5 - 23 ug/dl | | | | TOTAL SERUM | | | | | + +-------+ + + + + + | Specimen | + + | | + + + + + | Narrative | Performed At | + + + | Cortisol Reference Ranges | | | AM Reference Range: 8 - 23 ug/dl | | | PM Reference Range: Less than 10 ug/dl | | + + + + + + + + | Performing | Address | City/State/Zipcode | Phone Number | | Organization | | | | + + + + + | [facility] | [address] | [place] [address] | | | LABORATORY | | | | + + + + + IGF-1 (11/09/2000 4:23 PM PST) + +-------+ + + + | Component | Value | Ref Range | Performed | Pathologist | | | | | At | Signature | + +-------+ + + + | IGF-1 | 100 | 90 - 360 ng/mL | | | + +-------+ + + + + + | Specimen | + + | | + + + + + + + | Performing | Address | City/State/Zipcode | Phone Number | | Organization | | | | + + + + + | [facility] | [address] | [place] [address] | | | LABORATORY | | | | + + + + + documented in this encounter Visit Diagnoses Not on filedocumented in this encounter"
--- OUTSIDE RECORDS SUMMARY | ~2019-08-20 | XMS | Encounter Summary ---
Demographics + + + | Address | [address] | | | [place] [address] | + + + | Home Phone | | + + + | Preferred Language | Unknown | + + + | Marital Status | | + + + | Sikhism Affiliation | UNK | + + + | Race | White | + + + | Ethnic Group | Not or | + + + Author + + + | Author | [facility] | + + + | Organization | [facility] | + + + | Address | Unknown | + + + | Phone | Unavailable | + + + Support + + +---------+ + | Name | Relationship | Address | Phone | + + +---------+ + | Nitish Case | ECON | Unknown | | + + +---------+ + Care Team Providers + +------+ + | Care Telephone Solicitor Name | Role | Phone | + +------+ + | No Pcp Per Patient | PCP | Unavailable | + +------+ + Reason for Referral PROC - Outpatient Surgery (Routine) +--------+--------+ + + + + | Status | Reason | Specialty | Diagnoses / | Referred By | Referred To | | | | | Procedures | Contact | Contact | +--------+--------+ + + + + | Closed | | Plastic | Diagnoses | [place], | Okeefe, | | | | Surgery | Cabrera's | MD Law | MD Law | | | | | palsy | [address] | [address] | | | | | 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 | Ave | | | | | lagophthalmo | [place], [place] | [place] | | | | | s left upper | [address] | [phone] | | | | | eyelid | Phone: | Phone: | | | | | Procedures | [phone] | [phone] | | | | | REQUEST TO | Fax: | Fax: | | | | | SURGERY | [phone] | [phone] | | | | | SSRS REPORT DEVELOPER | | | | | | | [place] CORRECT | | | | | | | LAGOPHTHALMO | | | | | | | S W IMPLANT | | | +--------+--------+ + + + + Reason for Visit + + + | Reason | Comments | + + + | New patient | eval eyelids- bells palsy | | consultation | | + + + Consultation (Routine) + +--------+ + + + + | Status | Reason | Specialty | Diagnoses / | Referred By | Referred To | | | | | Procedures | Contact | Contact | + +--------+ + + + + | Authorized | | Plastic | Diagnoses | [place], | Sary, | | | | Surgery | Cabrera's | MD Jazmyne | MD Law | | | | | palsy | [address] | | | | | [address] | Ave | | | | | | [place], [place] | [facility] [place] | | | | | | [address] | [address] | | | | | | Phone: | Phone: | | | | | | [phone] | [phone] | | | | | | Fax: | Fax: | | | | | | [phone] | [phone] | + +--------+ + + + + Encounter Details +--------+---------+ + + + | Date | Type | Department | Care Team | Description | +--------+---------+ + + + | 02/15/ | Office | Plastic and | Law Okeefe MD | Cabrera's palsy | | 2019 | Visit | Reconstructive | [address] | (Primary Dx) | | | | Surgery at [facility] [address] | [facility] [place] | | | | | [address] | [address] | | | | | Mailcode: [id number] | [phone] | | | | | [facility] | | | | | | and Healing, | | | | | | Building [address], 5th | | | | | | Floor [place], [place] | | | | | | [address] | | | | | | [phone] | | | +--------+---------+ + + + Social History + +-------+ [...] + + documented as of this encounter Last Filed Vital Signs + + + [...] + + + documented in this encounter Progress Notes Law Okeefe MD - 02/15/2019 9:30 AM PDT Plastic Surgery Clinic Note Referring provider: No Referring Provider Per Patient History of Present Illness: Albertina Polanco Case is a 63 year old female who presents in [facility] today to discuss 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 Yayo russo is most bothered by the dryness and irritation of her left eye, which can cause the eye t o frequently water. Albertina had no issues with her eye prior to her Cabrera's palsy diagnosis. e notes no significant changes or improvement in the appearance of the left eye/eyebrow or t he left side of the mouth over the past few months. Patient is also interested in potential treatments for facial rejuvenation to address asymm etry of wrinkles on the forehead that are only present on the right side. PMH: Past Medical History: Diagnosis Date Ankle fracture Diabetes (HCC) PSH: Past Surgical History Procedure Laterality Date Fixation of spine with fusion 2013 Hysterectomy 1983 Rotator cuff repair 2000 Excision of gall bladder 1985 Carpal tunnel release 2011 Repair, ankle 2013 Medications: clonazePAM 1 mg oral tablet, Take 1 mg by mouth as needed. erythromycin 5 mg/gram (0.5 %) ophthalmic (eye) ointment, Instill into both eyes three time s daily. ezetimibe 10 mg oral tablet, Take 10 mg by mouth once daily. HUMULIN R U-500 (CONC) KWIKPEN 500 unit/mL (3 mL) subcutaneous insulin pen, Inject 120 Unit s under the skin (SUBC) two times daily. levothyroxine 25 mcg oral tablet, Take 25 mcg by mouth once daily. lithium carbonate 300 mg oral capsule, Take 300 mg by mouth once daily in the evening. metFORMIN 500 mg oral tablet, Take 1,000 mg by mouth two times daily. oxyCODONE (immediate release) 10 mg oral tablet, Take 10 mg by mouth every six hours as nee ded. prazosin 2 mg oral capsule, Take 2 mg by mouth once daily. primidone 50 mg oral tablet, Take 150 mg by mouth two times daily. venlafaxine XR 150 mg oral capsule,extended release 24hr, Take 150 mg by mouth once daily. venlafaxine XR 75 mg oral capsule,extended release 24hr, Take 75 mg by mouth once daily. ziprasidone 80 mg oral capsule, Take 80 mg by mouth once daily in the evening. zolpidem 10 mg oral tablet, Take 10 mg by mouth once daily in the evening. Allergies: Allergies Allergen Reactions Paanbcf-Ygu-Bhx Reductase Inhibitors Flushing Flu like symptoms SH: Social History Substance Use Topics Smoking status: Never Smoker Smokeless tobacco: Never Used Alcohol use No Social History Narrative None on file FH: Family History Problem Relation Diabetes Mother Diabetes Father Leukemia Father ROS I reviewed the review of systems on the patient's intake form obtained for today s vi sit. The following pertinent positive ROS were noted: Depression, stress, anxiety, ear ache, runny nose, paralysis, tingling, weakness, joint pain, arthritis, SOB Physical Exam: BP 125/64 | Pulse 77 | Resp 16 | Ht 1.727 m (5' 8") | Wt 91.5 kg (201 lb 12.8 oz) | Sp O2 100% | BMI 30.68 kg/m | BSA 2.1 m General: A & O x 3, sitting in chair in NAD Absence of wrinkles on the affected (left) side of the face Weak but present left brow elevation Weak but present eyelid closure, incomplete Weak, but present left modiolus elevation Absent obicularis function on the left Absent lip depressor function on the left Normal Cabrera's reflex ASSESSMENT & PLAN: Physical exam revealed incomplete paralysis of the left side of the face. Patient noted emily t her eye is her largest area of concern at this time and I recommended that we initially ad dress this issue. A small weight may be placed in the patient's upper eyelid in attempts of pulling it down. The placement of the weight may be performed under local anaesthesia and sh ould cause for the patient's reported symptoms to subside, though she may still need to cont inue performing eye taping at night. The details and risks of the procedure were explained t o the patient. She expressed understanding and wishes to proceed. Patient lives in [place] and we will attempt to arrange for her to have the testing for the eyelid weight closer to home. I explained to the patient that I do not believe that any procedure is needed at this time to address the left eyebrow as physical exam revealed that she still has moderate function i n this area. If she would like to address the unevenness of wrinkles on her forehead, she ma y pursue Botox, but it would most likely not be covered by insurance. Regarding the asymmetry of the smile, I explained to the patient that nothing can be done a bout the current puckering of the lip. A rotational flap of anterior diagastric from the nec k may be used to create a more symmetric appearance of the mouth, but I recommended against this due to minimal effect from a large surgery. She was in agreement with this recommendati on. I spent 35 minutes with the patient. Greater than 50% of the time was spent counseling the patient regarding surgical correction of left facial palsy . I am Michael Wagner functioning as a scribe for Law Okeefe MD at 7:46 AM on 02/15/2019 I have reviewed and verified the above scribed note of my visit with this patient as record ed by Michael Wagner. documented in this enco unter Plan of Treatment Not on filedocumented as of this encounter Visit Diagnoses + + | Diagnosis | + + | Cabrera's palsy - Primary | + + documented in this encounter
--- OUTSIDE RECORDS SUMMARY | ~2019-08-20 | XMS | Encounter Summary ---
Demographics + + + | Address | [address] | | | [place] [address] | + + + | Home Phone | | + + + | Preferred Language | Unknown | + + + | Marital Status | | + + + | Cheondoism Affiliation | UNK | + + + | Race | White | + + + | Ethnic Group | Not or | + + + Author + + + | Author | [facility] | + + + | Organization | [facility] | + + + | Address | Unknown | + + + | Phone | Unavailable | + + + Support + + +---------+ + | Name | Relationship | Address | Phone | + + +---------+ + | Nitish Case | ECON | Unknown | | + + +---------+ + Care Team Providers + +------+ + | Care Commercial Lines Underwriter Name | Role | Phone | + [...] | | | | | lagophthalmo | [place] | [place] | | | | | s left upper | [address] | [phone] | | | | | eyelid | Phone: | Phone: | | | | | Procedures | [phone] | [phone] | | | | | REQUEST TO | Fax: | Fax: | | | | | SURGERY | [phone] | [phone] | | | | | PARTS COUNTERPERSON | | | | | | | [place] CORRECT | | | | | | [...] Ave | | | | | | [place], [place] | [facility] [place] | | | | | | [address] | [address] | | | | | | Phone: | Phone: | | | | | | [phone] | [phone] | | | | | | Fax: | Fax: | | | | | | [phone] | [phone] | + +--------+ + + + + [...] Dx) | | | | Surgery at [facility] [address] | [facility] [place] | | | | | [address] | [address] | | | | | Mailcode: CH5P | [phone] | | | | | [facility] | | | | | | and Healing, | | | | | | Building [address], [address]th | | | | | | Floor [place], [place] | | | | | | [address] | | | | | | [phone] | | | +--------+---------+ + + + [...] 63 year old female who presents in [facility] today to discuss treatment options for symptoms [...] in the evening. Allergies: Allergies Allergen Reactions Hpwpivm-Iwh-Bha Reductase Inhibitors Flushing Flu like symptoms SH: [...] and wishes to proceed. Patient lives in [place] and we will attempt to arrange for [...]
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
--- OUTSIDE RECORDS SUMMARY | ~2019-08-20 | XMS | Encounter Summary ---
Demographics + + + | Address | [address] | | | [place] [address] | + + + | Home Phone | | + + + | Preferred Language | Unknown | + + + | Marital Status | | + + + | Congregation Affiliation | UNK | + + + | Race | White | + + + | Ethnic Group | Not or | + + + Author + + + | Author | [facility] | + + + | Organization | [facility] | + + + | Address | Unknown | + + + | Phone | Unavailable | + + + Support + + +---------+ + | Name | Relationship | Address | Phone | + + +---------+ + | Nitish Case | ECON | Unknown | | + + +---------+ + Care Team Providers + +------+ + | Care Blocker And Cutter Contact Lens Name | Role | Phone | + [...] | | | [address] | [place], [place] | | | | | Rachel Mcduffie Mailcode: | [address] | | | | | [facility] Outpatient | [phone] | | | | | Clinic Building | | | | | | [place], [place] | | | | | | [address] | | | | | | [phone] | | | +--------+ + + + [...] + + + | [facility] | [address] | [place], [place] | | | | | [address] | | + + + + + [...] + + + | [facility] | [address] | [place], [place] | | | | | [address] | | + + + + + [...] + + + | [facility] | [address] | [place], [place] | | | | | [address] | | + + + + + [...] | + + + + + | [facility] | [address] | [place] [address] | | | LABORATORY | | | [...] | + + + + + | [facility] | [address] | [place] [address] | | | LABORATORY | | | [...] | + + + + + | [facility] | [address] | [place] [address] | | | LABORATORY | | | | + + + + + documented in this encounter Visit Diagnoses Not on filedocumented in this encounter"
--- OUTSIDE RECORDS SUMMARY | ~2019-08-20 | XMS | Encounter Summary ---
Demographics + + + | Address | [address] | | | [place] [address] | + + + | Home Phone | | + + + | Preferred Language | Unknown | + + + | Marital Status | | + + + | Zoroastrian Affiliation | UNK | + + + | Race | White | + + + | Ethnic Group | Not or | + + + Author + + + | Author | [facility] | + + + | Organization | [facility] | + + + | Address | Unknown | + + + | Phone | Unavailable | + + + Support + + +---------+ + | Name | Relationship | Address | Phone | + + +---------+ + | Nitish Case | ECON | Unknown | | + + +---------+ + Care Team Providers + +------+ + | Care Supervisor Building Maintenance Name | Role | Phone | + [...] | | | | | Surgery at [facility] [address] | [place], [place] | | | | | [address] | [address] | | | | | Mailcode: [facility] | [phone] | | | | | [facility] | | | | | | jarrod Nolasco, | | | | | | [facility] | | | | | | [place], [place] | | | | | | [address] | | | | | | [phone] | | | +--------+ + + + [...]
--- OUTSIDE RECORDS SUMMARY | ~2019-08-20 | XMS | Encounter Summary ---
Demographics + + + | Address | [address] | | | [place] [address] | + + + | Home Phone | | + + + | Preferred Language | Unknown | + + + | Marital Status | | + + + | Jew Affiliation | UNK | + + + | Race | White | + + + | Ethnic Group | Not or | + + + Author + + + | Author | [facility] | + + + | Organization | [facility] | + + + | Address | Unknown | + + + | Phone | Unavailable | + + + Support + + +---------+ + | Name | Relationship | Address | Phone | + + +---------+ + | Nitish Case | ECON | Unknown | | + + +---------+ + Care Team Providers + +------+ + | Care Trim Setter Helper Name | Role | Phone | + [...] as of this encounter Progress Notes Interface, Aircraft Tool Maker In - 09/02/2006 3:11 AM PSTCLINIC DATE: 11/09/2000 DIABETES CLINIC REFERRAL SOURCE: The patient is self-referred, but on recommendation of Dr. Russ Caceres who is her dray driver and still the person she views as her primary provider in [place]. This is despite the fact that she now lives in [place]. HISTORY OF PRESENT ILLNESS: Mrs. Polanco is [...] complains of blurred vision quite often. The shagger apparently found no evidence of diabetic retinopathy. [...] complications. SOCIAL HISTORY: The patient works for [employer] in [employer] REVIEW OF SYSTEMS: GENERAL: She denies any [...] her insulin. Dandre Polo M.D. AA / [id number] / [id number] / [id number] / cc: Aixa Caceres M.D. [address] [address] [id number] signed by Interface, Aircraft Tool Maker In at 09/02/2006 3:11 AM PSTdocume nted in this encounter Plan of Treatment Not on filedocumented as of this encounter Visit Diagnoses Not on filedocumented in this encounter
--- OUTSIDE RECORDS SUMMARY | ~2019-08-20 | XMS | Clinical Summary ---
Demographics + + + | Address | [address] | | | [place] [address] | + + + | Home Phone | | + + + | Preferred Language | Unknown | + + + | Marital Status | | + + + | Yazidism Affiliation | UNK | + + + [...] Team Providers + +------+ + | Care Lighter Captain Name | Role | Phone | + +------+ + | No Pcp Per Patient | PCP | Unavailable | + +------+ + Source Comments DARCIE is fully live on both [facility] Ambulatory and [facility] InPatient.[facility] Allergies + + + + + + | Active Allergy | Reactions | Severity | Noted | Comments | | | | | Date | | + + + + + + | [id number] | [place] | | 09/21/20 | Flu [...] | HEALTH | xxxxxxxxxxx | 10/30/19 | [phone] | [address] | PPO | | MEDICARE | NET | | 19-Pre | 3 | [phone] | | | | MEDICA | | sent | | [place], | | | | RE PPO | | | | [place] | | | | | | | | [phone] | | + +--------+ +--------+ + +------+ [...] al/Fam | | 1956 | [phone] | [place] | | | antione | | | 0 (Home) | [phone] | + +--------+ +--------+ + +
[~2019-08-20 18:13] MED LIST changes: +PREDNISONE20 MG PO; +ZOVIRAX800 MG PO
--- OUTSIDE RECORDS SUMMARY | 2019-08-20 18:16 | XMS ---
PreManage Notification: JAMES MANZANO Security Anesthesia Technician Events No recent Security Events currently on file CRITERIA MET - [facility] CARE PROVIDERS [facility] Current PHONE: Unknown [facility] Current PHONE: [phone] Juan Ramon has no Care Guidelines for this patient. Robert VISIT COUNT (12 MO.) 1 Elizabeth Jc TOTAL 3 NOTE: Visits indicate total known visits. 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
[2019-08-20] MEDS ORDERED: PRIMIDONE250 MG PO (18:29)
[2019-08-20] MEDS ORDERED: PROPRANOLOL HCL (18:29)
[2019-08-20] MEDS ORDERED: PROPRANOLOL HCL40 MG (18:30)
--- NOTE | 2019-08-21 18:12 | EKG ---
[facility] [address] [place], [place] [address] Signed Normal sinus rhythm Cannot rule out Anterior infarct , age undetermined Abnormal ECG Confirmed by KORY MERCER MD ([id number]) on 08/21/2019 6:12:38 PM Electronically Signed By: KORY MERCER MD 08/21/191811 PATIENT NAME: JAMES MANZANO Electrocardiogram DATE OF : 59 PHYSICIAN: KORY MERCER MD REPORT #: [id number] REPORT IS CONFIDENTIAL AND NOT TO BE RELEASED WITHOUT AUTHORIZATION
== END 2019-08-20 20:41 | disposition home or self-care (01) ==
LOC: ED 18:13
DX: S06.0X0A Concussion without loss of consciousness, initial encounter (principal); S00.83XA Contusion of other part of head, initial encounter; R42 Dizziness and giddiness; I10 Essential (primary) hypertension; E11.9 Type 2 diabetes mellitus without complications; Z88.8 Allergy status to other drugs, medicaments and biological substances; Z79.4 Long term (current) use of insulin; Z79.899 Other long term (current) drug therapy; W18.30XA Fall on same level, unspecified, initial encounter
CPT/HCPCS: 70450; 70486; 80053; 80178; 85025; 85610; 85730; 90471; 90715; 93005; 93010; 99284-25

== ENCOUNTER 2021-03-22 15:50 | Emergency (ER) | payer OTHER ==
[~2021-03-22] VITALS: Ht 175.3 cm; Wt 86.6 kg
[~2021-03-22 15:50] MED LIST changes: +PRIMIDONE250 MG PO; +PROPRANOLOL HCL; +PROPRANOLOL HCL40 MG
--- OUTSIDE RECORDS SUMMARY | 2021-03-22 15:52 | XMS ---
PreManage Notification: JAMES MANZANO Security Ethyl Blender Events No recent Security Events currently on file CRITERIA MET - [facility]ERS [facility] Current PHONE: [phone] Braydon Downing Current PHONE: Unknown Juan Ramon has no Care Guidelines for this patient. Robert VISIT COUNT (12 MO.) Rishi Jc TOTAL 1 NOTE: Visits indicate total known visits. ED/UCC VISIT TRACKING (12 MO.) 03/22/2021 15:50 [facility] [place] TYPE: Emergency COMPLAINT: - HEADACHES, BRUISING INPATIENT VISIT TRACKING (12 MO.) 09/03/2020 08:00 [facility] [place] TYPE: Urology DIAGNOSES: - Neoplasm of uncertain behavior of left kidney [id number]
[2021-03-22] MEDS ORDERED: LISINOPRIL10 MG PO (17:21)
[2021-03-22] MEDS ORDERED: AMANTADINE100 M1 PO (17:22)
[2021-03-22] MEDS ORDERED: PIOGLITAZONE HC30 MG PO (17:22)
[2021-03-22] MEDS ORDERED: PRAVASTATIN SOD20 MG PO (17:22)
[2021-03-22] MEDS ORDERED: EFFEXOR XR150 MG PO (17:22)
== END 2021-03-22 18:35 | disposition home or self-care (01) ==
LOC: ED 15:50
DX: R23.3 Spontaneous ecchymoses (principal); R51.9 Headache, unspecified; E11.9 Type 2 diabetes mellitus without complications; I10 Essential (primary) hypertension; E78.00 Pure hypercholesterolemia, unspecified; Z88.8 Allergy status to other drugs, medicaments and biological substances; Z79.899 Other long term (current) drug therapy; Z79.4 Long term (current) use of insulin
CPT/HCPCS: 70450; 80053; 85025; 85610; 85730; 99284-25

== ENCOUNTER 2021-10-22 14:29 | Emergency (ER) | payer OTHER ==
[~2021-10-22] VITALS: Ht 175.3 cm; Wt 90.7 kg
[~2021-10-22 14:29] MED LIST changes: +AMANTADINE100 M1 PO; +EFFEXOR XR150 MG PO; +LISINOPRIL10 MG PO; +PIOGLITAZONE HC30 MG PO; +PRAVASTATIN SOD20 MG PO
--- OUTSIDE RECORDS SUMMARY | 2021-10-22 14:32 | XMS ---
PreManage Notification: JAMES MANZANO Security Net Fisher Events No recent Security Events currently on file CRITERIA MET - [facility] CARE PROVIDERS Rico Del Angel [facility] Current PHONE: Unknown Braydon Downing Current PHONE: Unknown Juan Ramon has no Care Guidelines for this patient. Robert VISIT COUNT (12 MO.) 3 Elizabeth Jc TOTAL 5 NOTE: Visits indicate total known visits. ED/UCC VISIT TRACKING (12 MO.) 10/22/2021 14:[address] [facility] [place] TYPE: Emergency COMPLAINT: - FALL, NECK PAIN, POSS HEAD INJURY [facility] DIAGNOSES: - Multiple fractures of ribs, right side, subsequent encounter for fracture with routine healing - Rib Pain 08/11/2021 11:[facility] DIAGNOSES: - Emesis - Rib Pain - Vomiting, unspecified - Multiple fractures of ribs, right side, initial encounter for closed fracture - Rib Pain/Vomiitng 07/24/2021 20:[facility] DIAGNOSES: - vision trouble - Other visual disturbances - Vision Changes 03/22/2021 15:[address] [facility] [place] TYPE: Emergency COMPLAINT: - HEADACHES, BRUISING DIAGNOSES: - Spontaneous ecchymoses - Headache, unspecified - Pure hypercholesterolemia, unspecified - extermination inspector (current) use of insulin - Essential (primary) hypertension - Allergy status to other drugs, medicaments and biological substances - Spontaneous ecchymoses - Other nursing home (current) drug therapy - Type 2 diabetes mellitus without complications INPATIENT VISIT TRACKING (12 MO.) No inpatient visits to display in this time frame [email or web address]
[2021-10-22] MEDS ORDERED: MECLIZINE HCL25 MG PO (18:48)
--- NOTE | 2021-10-23 17:45 | EKG ---
[facility] [address] [facility] [place], [place] [address] Signed Normal sinus rhythm Normal ECG When compared with ECG of 20-AUG-2019 18:29, No significant change was found Confirmed by LESLEY JACOBO DO ([id number]) on 10/23/2021 5:45:41 PM Electronically Signed By: LESLEY JACOBO DO 10/23/21 1745 PATIENT NAME: JAMES MANZANO Electrocardiogram DATE OF : 59 PHYSICIAN: LESLEY JACOBO DO REPORT #: [id number] REPORT IS CONFIDENTIAL AND NOT TO BE RELEASED WITHOUT AUTHORIZATION
== END 2021-10-22 19:12 | disposition home or self-care (01) ==
LOC: ED 14:29
DX: S06.0X0A Concussion without loss of consciousness, initial encounter (principal); S10.93XA Contusion of unspecified part of neck, initial encounter; H81.399 Other peripheral vertigo, unspecified ear; W18.30XA Fall on same level, unspecified, initial encounter; E11.9 Type 2 diabetes mellitus without complications; Z88.8 Allergy status to other drugs, medicaments and biological substances; Z79.899 Other long term (current) drug therapy; Z79.4 Long term (current) use of insulin
CPT/HCPCS: 70450; 71045; 72125; 80048; 81001; 84484; 85025; 93005; 93010; 99284-25; A9270; G0480; J7040

== ENCOUNTER 2022-01-26 19:49 | Emergency (ER) | payer OTHER ==
[~2022-01-26] VITALS: Ht 172.7 cm; Wt 86.0 kg
[~2022-01-26 19:49] MED LIST changes: +MECLIZINE HCL25 MG PO
--- OUTSIDE RECORDS SUMMARY | 2022-01-26 19:52 | XMS ---
PreManage Notification: JAMES MANZANO Security Remote Broadcast Engineer Events No recent Security Events currently on file CRITERIA MET - [facility] CARE PROVIDERS Rico Del Angel [facility] Current PHONE: Unknown Juan De La Rosa Physical [facility] \T\ Rehabilitation 10/26/2021-Current PHONE: Unknown Braydon Downing Current PHONE: Unknown Juan Ramon has no Care Guidelines for this patient. E.D. VISIT COUNT (12 MO.) 3 Elizabeth Benedict [facility] 3 [facility] Jc TOTAL 6 NOTE: Visits indicate total known visits. ED/UCC VISIT TRACKING (12 MO.) 01/26/2022 19:50 [facility] [place] TYPE: Emergency COMPLAINT: - VOMITING 10/22/2021 14:30 [facility] [place] TYPE: Emergency COMPLAINT: - FALL, NECK PAIN, POSS HEAD INJURY DIAGNOSES: - Concussion without loss of consciousness, initial encounter - intermission coordinator (current) use of insulin - Contusion of unspecified part of neck, initial encounter - Fall on same level, unspecified, initial encounter - Other peripheral vertigo, unspecified ear - Allergy status to other drugs, medicaments and biological substances - Type 2 diabetes mellitus without complications - Dizziness and giddiness - Other long term care phlebotomist (current) drug therapy 09/02/2021 09:[address] [facility] [place] TYPE: Emergency DIAGNOSES: - Multiple fractures of ribs, right side, subsequent encounter for fracture with routine healing - Rib Pain 08/11/2021 11:[address] [facility] [place] TYPE: Emergency DIAGNOSES: - Emesis - Rib Pain - Vomiting, unspecified - Multiple fractures of ribs, right side, initial encounter for closed fracture - Rib Pain/Vomiitng 07/24/2021 20:[address] [facility] [place] TYPE: Emergency DIAGNOSES: - vision trouble - Other visual disturbances - Vision Changes 03/22/2021 15:[address] [facility] [place] TYPE: Emergency COMPLAINT: - HEADACHES, BRUISING DIAGNOSES: - Spontaneous ecchymoses - Headache, unspecified - Pure hypercholesterolemia, unspecified - intermission coordinator (current) use of insulin - Essential (primary) hypertension - Allergy status to other drugs, medicaments and biological substances - Spontaneous ecchymoses - Other penitentiary (current) drug therapy - Type 2 diabetes mellitus without complications INPATIENT VISIT TRACKING (12 MO.) No inpatient visits to display in this time frame [id number]
[2022-01-27] MEDS ORDERED: ONDANSETRON ODT8 MG PO (00:19)
== END 2022-01-27 00:41 | disposition home or self-care (01) ==
LOC: ED 19:49
DX: K29.50 Unspecified chronic gastritis without bleeding (principal); E11.9 Type 2 diabetes mellitus without complications; Z88.8 Allergy status to other drugs, medicaments and biological substances; Z79.899 Other long term (current) drug therapy; Z79.01 Long term (current) use of anticoagulants; Z79.4 Long term (current) use of insulin
CPT/HCPCS: 36415; 80053; 81001; 83735; 85025; 96374; 99284-25; A9270; J2405; J7030

== ENCOUNTER 2022-03-06 10:34 | Inpatient (IN) | payer MEDICARE ==
[~2022-03-06] VITALS: Ht 172.7 cm; Wt 92.5 kg
[~2022-03-06 10:34] MED LIST changes: +ONDANSETRON ODT8 MG PO
--- OUTSIDE RECORDS SUMMARY | 2022-03-06 10:36 | XMS ---
PreManage Notification: JAMES MANZANO Security Dial Equipment Engineer Events No recent Security Events currently on file CRITERIA MET - [facility] CARE PROVIDERS Rico Del Angel [facility] Current PHONE: Unknown Juan De La Rosa Physical Lela \T\ Rehabilitation 10/26/2021-Current PHONE: Unknown Braydon Downing Current PHONE: Unknown Juan Ramon has no Care Guidelines for this patient. E.D. VISIT COUNT (12 MO.) 3 Elizabeth Benedict M.C. 4 [facility] Jc TOTAL 7 NOTE: Visits indicate total known visits. ED/UCC VISIT TRACKING (12 MO.) 03/06/2022 10:34 [facility] [place] TYPE: Emergency COMPLAINT: - LOW B/P, BLURRED SIGHT, HEADACHE, SOB 01/26/2022 19:50 [facility] [place] TYPE: Emergency COMPLAINT: - VOMITING DIAGNOSES: - Other assisted (current) drug therapy - half-way (current) use of insulin - Unspecified chronic gastritis without bleeding - Type 2 diabetes mellitus without complications - Allergy status to other drugs, medicaments and biological substances - half-way (current) use of anticoagulants - Nausea with vomiting, unspecified 10/22/2021 14:30 [facility] [place] TYPE: Emergency COMPLAINT: - FALL, NECK PAIN, POSS HEAD INJURY DIAGNOSES: - Concussion without loss of consciousness, initial encounter - long term care social worker (current) use of insulin - Contusion of unspecified part of neck, initial encounter - Fall on same level, unspecified, initial encounter - Other peripheral vertigo, unspecified ear - Allergy status to other drugs, medicaments and biological substances - Type 2 diabetes mellitus without complications - Dizziness and giddiness - Other termite control service representative (current) drug therapy [facility] DIAGNOSES: - Multiple fractures of ribs, right side, subsequent encounter for fracture with routine healing - Rib Pain 08/11/2021 11:10 [facility] [place] TYPE: Emergency DIAGNOSES: - Emesis - Rib Pain - Vomiting, unspecified - Multiple fractures of ribs, right side, initial encounter for closed fracture - Rib Pain/Vomiitng 07/24/2021 20:12 [facility] DIAGNOSES: - vision trouble - Other visual disturbances - Vision Changes 03/22/2021 15:[address] [facility] [address] [facility] [place] TYPE: Emergency COMPLAINT: - HEADACHES, BRUISING DIAGNOSES: - Spontaneous ecchymoses - Headache, unspecified - Pure hypercholesterolemia, unspecified - long term care social worker (current) use of insulin - Essential (primary) hypertension - Allergy status to other drugs, medicaments and biological substances - Spontaneous ecchymoses - Other termite control service representative (current) drug therapy - Type 2 diabetes mellitus without complications INPATIENT VISIT TRACKING (12 MO.) No inpatient visits to display in this time frame [email or web address]
--- NOTE | 2022-03-06 15:30 | NUR ---
PT ARRIVES TO CCU ROOM 127 FROM ED, TRANSFERS SELF TO BED FROM [facility] BY SLIDING HERSELF OVER. PT ADMITTED FOR HYPOTENSION THAT HAS BEEN ONGOING OVER SEVERAL MONTHS AND WORSE YESTERDAY, PT ALSO HAD A FALL YESTERDAY.
--- NOTE | 2022-03-06 15:35 | NUR ---
ASSESSMENT DONE-PT IS ALERT AND ORIENTED, LUNGS CLEAR, PT CO SOB. ON ROOM AIR WITH SATS IN HIGH 90'S. C/O DIZZINESS AND A HEADACHE. HOB LOWERED. WILL CONT TO MONITOR BP'S AND GIVE IVF ORDERED. AWAITING IVF WITH BICARB FROM PHARMACY AND WILL HANG WHEN AVAILABLE. PLAN OF CARE DISCUSSED WITH PT AND QUESTIONS ANSWERED. PT SEEMS SOMEWHAT PERKY AND NOT ESPECIALLY WEAK, WAS ABLE TO MOVE HERSELF OVER TO BED WITH GOOD STRENGTH.
--- NOTE | 2022-03-06 15:40 | NUR ---
MANUAL BP CHECKED = 82/44. AUTOMATIC BP 88/48 (62). PT ARRIVED FROM ED WITH LR BOLUS INFUSING.
--- NOTE | 2022-03-06 15:44 | NUR ---
PT REQUESTING PAIN MEDICATION FOR HEADACHE AND NECK 05/08. WILL GIVE PRN OXYCODONE.
--- NOTE | 2022-03-06 16:09 | NUR ---
IN TO SEE PT.
--- NOTE | 2022-03-06 16:26 | NUR ---
BLOOD SUGAR 126
--- NOTE | 2022-03-06 18:07 | NUR ---
BPS HAVE IMPROVED, LAST BP 111/59 (72). UPDATE TO KWAME DIXON TO ADVANCE PT TO 60G ADA DIET. IN ROOM VISITING PT.
--- NOTE | 2022-03-06 19:30 | NUR ---
RECEIVED REPORT FROM DAY SHIFT RN. PT LAYING IN BED IN NO ACUTE DISTRESS. PT RESP EVEN AND UNLABORED. REPORTS HEADACHE AND CHRONIC NECK PAIN MEDICDATED WITH PRN PAIN MEDS. VSS CALL LIGHT WITHIN REACH WILL CONTINUE TO MONITOR
--- NOTE | 2022-03-06 23:32 | NUR ---
PT LAYING IN BED IN NO ACUTE DISTRESS. PT REPORTS FEELING WELL. VSS RESP EVEN AND UNLABORED. WILL CONTINUE TO MONITOR.
--- NOTE | 2022-03-07 02:08 | NUR ---
PT SLEEPING IN BED WITH EYES CLOSED . RESP EVEN AND UNLABORED. VSS NO SX OF ANY CONCERN. CALL LIGHT WITHIN REACH WILL CONTINUE TO MONITOR.
--- NOTE | 2022-03-07 05:10 | NUR ---
PT WAS SWABBED FOR COVID 19
--- NOTE | 2022-03-07 05:16 | NUR ---
PT AWAKE REPORTS NOT ABLE TO SLEEP MUCH, R.T INTO SWAB PT FOR ADMISSION COVID . PT RESP EVEN AND UNLABORED, DENIES ANY CONCERN AT THIS TIME. ASKING ABOUT BP 135/72 INFORMED PT THAT BP ARE STAYING UP . CALL LIGHT WITHIN REACH WILL CONTINUE TO MONITOR.
--- NOTE | 2022-03-07 07:45 | NUR ---
REPORT RECEIVED FROM RANDEE BENITEZ. PT LYING IN BED AWAKE. STATES SHE STILL HAS THE HEADACHE THAT SHE HAD YESTERDAY, DID NOT SLEEP AT ALL ALTHOUGH STOREROOM SUPERVISOR RN DID REPORT THAT SHE DID SLEEP SOME, AND THAT HER NAUSEA IS STARTING TO RETURN. WILL MEDICATE WITH ZOFRAN SOON. PLAN REGARDING COSYNTROPIN LAB DRAWS DISCUSSED AND PLAN FOR THE REST OF THE DAY. PT IS AGREEABLE AND HAS NO REQUESTS. REMINDED OF NEED FOR FASTING FOR LAB DRAW AND SHE STATES SHE IS NOT VERY HUNGRY RIGHT NOW.
--- NOTE | 2022-03-07 08:05 | NUR ---
LAB HAS JUST DRAWN BLOOD, COSYNTROPIN GIVEN. RST OF AM MEDS GIVEN AND PRN OXYCODONE 10MG GIVEN FOR 6/10 HEADACHE. PT IS CHEERFUL THIS MORNING, C/O ONLY THE HEADACHE AND NAUSEA. LUNGS HAVE VERY SLIUGHT EXP WHEEZE THROUGHOUT. IVF WITH BICARB CONT INFUSING AT 125ML/HR. CALL LIGHT IN REACH.
--- NOTE | 2022-03-07 08:21 | NUR ---
VITALS AND I&OS CHARTED. FACE AND HANDS WASHED. BROWNING EMPTIED.
[2022-03-07] MEDS ORDERED: AMBIEN10 MG PO (08:23)
[2022-03-07] MEDS ORDERED: GABAPENTIN300 MG PO (09:00)
[2022-03-07] MEDS ORDERED: ZANAFLEX4 MG PO (09:01)
[2022-03-07] MEDS ORDERED: HUMALOG KW200 UNIT/1 SUB-Q (09:02)
[2022-03-07] MEDS ORDERED: REPATHA SU140 MG/1 M SUB-Q (09:05)
[2022-03-07] MEDS ORDERED: BASAGLAR K100 UNIT/1 SUB-Q (09:07)
--- NOTE | 2022-03-07 09:10 | NUR ---
medications reconciled using pharmacy records and patient interview
--- NOTE | 2022-03-07 10:37 | NUR ---
4MG IV ZOFRAN GIVEN FOR CONTINUED NAUSEA. PT REPORTS THAT SHE FELT THE OXYCODONE "TOOK THE EDGE OFF" OF HER HEADACHE, COOL CLOTH GIVEN FOR FOREHEAD. PT HAS NO OTHER REQUESTS AT THIS TIME, PLAN DISCUSSED TO GIVE MEDICATION SOME TIME, REASSESS NAUSEA AND THEN GIVE A DIFFERENT MED NEEDED; CAN GIVE MORE PAIN MEDICATION AT 1200 AND PT OKAY WITH THIS PLAN.
--- NOTE | 2022-03-07 11:02 | NUR ---
PT REPORTS NAUSEA IS BETTER, WILL CALL IF SHE FEELS LIKE SHE NEEDS ADDITIONAL NAUSEA MEDICATION.
--- NOTE | 2022-03-07 11:58 | NUR ---
DR SHIRLEY IN TO SEE PT, PLAN TO TRANSFER PT TO [facility], BRENT BROWNING AND TAKE PT OFF PAPER TUBE CUTTER DISCUSSED WITH PT AND PT AGREEABLE, ALSO DISCUSSED GASTRIC EMPTYING STUDY AND NEED TO BE NPO.
--- NOTE | 2022-03-07 12:24 | NUR ---
IN TO ASK IF PT WANTS PAIN PILLS NUC MED TEST WILL BE TOMORROW, PT STATES "NO I'M DOING OKAY" AND WILL CALL IF SHE DOES WANT THEM LATER. ALSO INFORMED HER THAT SHE CAN EAT AND SHE STATES SHE WANTS TO EAT RIGHT NOW.
--- NOTE | 2022-03-07 13:00 | NUR ---
PT CALLS TO ASK FOR SOUP AND OXYCODONE. 10MG PRN OXYCODONE GIVEN ALONG WITH SOME CHICKEN SOUP.
--- NOTE | 2022-03-07 14:07 | EKG ---
[facility] [address] [facility] [address] [place], [place] [address] Signed Normal sinus rhythm Septal infarct , age undetermined Abnormal ECG No previous ECGs available Confirmed by PATRIA SHIRLEY MD ([id number]) on 03/07/2022 2:07:24 PM Electronically Signed By: PATRIA SHIRLEY MD 03/07/22 1407 PATIENT NAME: JAMES MANZANO Electrocardiogram DATE OF : 59 PHYSICIAN: PATRIA SHIRLEY MD REPORT #: [id number] REPORT IS CONFIDENTIAL AND NOT TO BE RELEASED WITHOUT AUTHORIZATION
--- NOTE | 2022-03-07 15:15 | NUR ---
BED BATH GIVEN, PT ASSISTED. UP TO CHAIR WITH CALL LIGHT IN HAND. NO COMPLAINTS AT THIS TIME.
--- NOTE | 2022-03-07 16:27 | NUR ---
IN TO CHECK ON PT, SHE C/O NAUSEA AND DRY HEAVING. 4MG IV ZOFRAN GIVEN AND PT ASSISTED BACK TO BED. DENIES NEED FOR PAIN MEDICATION AT THIS TIME.
--- NOTE | 2022-03-07 17:30 | NUR ---
PT REPORTS NAUSEA GONE AFTER ZOFRAN, WILL TRY EATING DINNER.
--- NOTE | 2022-03-07 18:43 | NUR ---
IN ROOM. PT WAS ABLE TO EAT ALL HER DINNER, NO C/O NAUSEA OR PAIN AT THIS TIME.
--- NOTE | 2022-03-07 21:59 | NUR ---
PT REPORTS NAUSEA AND DRIVE HEAVES, PRN ANITEMTIC GIVEN. GAVE PT CRACKERS AND JELLO. PT UP TO BATHROOM DENIES DIZZINESS. CALL LIGHT WITHIN REACH WILL CONTINUE TO MONITOR.
--- NOTE | 2022-03-08 00:17 | NUR ---
PT LAYING IN BED IN NO ACUTE DISTRESS, REPORTS FEELKING SLEEPY AND MIGHT NOT NEED PRN MEDS FOR INSOMNIA. VSS RESP EVEN AND UNLABORED. WILL CONTINUE TO MONITOR
--- NOTE | 2022-03-08 00:56 | NUR ---
PT UP TO BATHROOM TO VOID, DENIES ANY CONCERNS, VOIDING SUFFICENT. CALL LIGHT WITHIN REACH WILL CONTINUE TO MONITOR.
--- NOTE | 2022-03-08 02:22 | NUR ---
PT UP TO BATHROOM , REQUESTING I TURN OFF FLUIDS AND SHE HAS BEEN UP MULTIPLE TIMES THROUGH OUT NIGHT. PAUSED FLUIDS FOR AWHILE. PT VOIDING WELL. DENIES ANY OTHER CONCERNS AT THIS TIME. WILL CONTINUE TO MONITOR.
--- NOTE | 2022-03-08 04:27 | NUR ---
PT UP TO BATHROOM , DENIES ANY CONCERNS. ASKED ABOUT TAKING AMBIEN. INFORMED PT THAT ITS TO LATE TO TAKE AMBIEN AT THIS TIME. VSS BP WNL. CALL LIGHT WIHTIN REACH WILL CONTINUE TO MONITOR.
--- NOTE | 2022-03-08 07:30 | NUR ---
REPORT RECIEVED. PATIENT IS RESTING IN BED.
--- NOTE | 2022-03-08 10:45 | NUR ---
Spoke with Albertina. She states she is awaiting a test today. States more cancer has been found and also now has lump in her breast. Pt stating she really doesn't want more treatment. Pt plans on dc to home on release. Will update Dr. Morgan to see if he thinks this pt is ready for hospice.
--- NOTE | 2022-03-08 11:45 | NUR ---
VITALS CHARTED. PATIENT C/O HEADACHE, RN NOTIFIED. CALL LIGHT IN REACH, NO OTHER NEEDS AT THIS TIME
--- NOTE | 2022-03-08 12:18 | NUR ---
AWATING NECK MED TEST. C/O HEADACHE AND NECK PAIN.
--- NOTE | 2022-03-08 12:45 | NUR ---
TO [facility] VIA W/C.
--- NOTE | 2022-03-08 14:05 | NUR ---
REMAINS IN NUC MED.
--- NOTE | 2022-03-08 14:07 | NUR ---
PT TAKEN TO IMAGING. WILL FOLLOW
--- NOTE | 2022-03-08 14:10 | NUR ---
RETURN TO ROOM 127. RESTING IN BED FOR NOW. DENIES ANY NEEDS.
--- NOTE | 2022-03-08 19:03 | NUR ---
received patient from CCU about 15 minutes ago. Patient reports no needs, pain at 4/10 which is comfortable for her. Her vitals of stable, removed right hand IV access due to redness and pain.
--- NOTE | 2022-03-08 19:53 | NUR ---
REPORT RECEIVED FROM EMMANUEL MITCHELL. pt RESTING IN CHAIR AWAKE, ON CELL PHONE. IV SL. DENIES NEEDS. CALL LIGHT IN REACH.
--- NOTE | 2022-03-08 21:10 | NUR ---
pt RESTING IN BED AWAKE. ASSESSMENT COMPLETE. RATES PAIN 5-6/10 IN NECK. DENIES NEEDS FOR PRN MEDICATION AT THIS TIME. VSS. INDEPENDENT TO RESTROOM FOR VOID. URINE EMPTIED. IV SITE FLUSHED WNL, SL. PO FLUIDS PROVIDED. CBG 291, SS INSULIN ADMINISTERED WITH SUGAR FREE SNACK REQUESTED. CALL LIGHT IN REACH.
--- NOTE | 2022-03-08 22:45 | NUR ---
CALL LIGHT ANSWERED. PRN SLEEP MEDICATION ADMINSITERED AT THIS TIME. RESTING IN BED TALKING ON CELL PHONE. pt DENIES ADDITIONAL NEEDS. CALL LIGHT IN REACH.
--- NOTE | 2022-03-09 00:47 | NUR ---
pt RESTING IN BED. NO DISTRESS NOTED. LIGHTS OFF IN ROOM.
--- NOTE | 2022-03-09 03:30 | NUR ---
CHECKED ON pt. RESTING IN BED WITH EYES CLOSED. NO DISTRESS NOTED. LIGHTS OFF IN ROOM.
--- NOTE | 2022-03-09 06:21 | NUR ---
pt SLEEPING, AWAKENS TO VOICE. pt INSTRUCTED ON NPO STATUS FOR EGD. pt VERBALIZES UNDERSTANDING. VSS. ASSESSMENT COMPLETE. URINE EMPTIED FROM HAT. CALL LIGHT IN REACH. NO REQUESTS AT THIS TIME.
--- NOTE | 2022-03-09 06:45 | NUR ---
IN pt ROOM DISCUSSING EGD TODAY. pt QUESTIONS ANSWERED. CONSENT SIGNED AND ON CHART. IV SITE FLUSHED WNL, IVF INFUSING ORDERED BY MD. CALL LIGHT IN REACH.
--- NOTE | 2022-03-09 07:05 | NUR ---
REPORT RECIEVED FROM FORTUNATO BENITEZ. PT SITTING IN BED, STATES NO NEEDS AT THIS TIME. CALL LIGHT IN REACH.
--- NOTE | 2022-03-09 08:10 | NUR ---
IN ROOM TO ADMINISTER SCHEDULED MEDICATIONS, ASSESSMENT COMPLETE. PT A+0, LSC, HRR, BOWEL TONES ACTIVE. PT STATES "A LITTLE PAIN, BUT TOLERABLE" PT SKIN COOL AND PALE, CHRONIC NUMBNESS AND TINGLING IN FEET. IV WNL. NO FUTHER NEEDS AT THIS TIME. WILL CONTINUE PLAN OF CARE.
--- NOTE | 2022-03-09 09:52 | NUR ---
03/09/22 0952 Dianna Hadley 0941-PATIENT ARRIVED TO PACU ON 6L NC NONAROUSABLE. SR. IVF INFUSING. PATIENT COUGHING EYES CLOSED HOB RAISED AND PLACED ON 4L NC 95%
--- NOTE | 2022-03-09 10:20 | NUR ---
PT BACK TO MED SURG FROM OR. PT AWAKE A+O, ON RA, BREATHING EQUAL AND UNLABORED, VSS. IVF INFUSING WNL. PT STATES NO PAIN OR NAUSEA. PT UPDATED ON POC.
--- NOTE | 2022-03-09 10:57 | NUR ---
INFORMED PT IS TAKEN TO OR FOR SCOPE. WILL FOLLOW
--- NOTE | 2022-03-09 11:34 | NUR ---
Scheduled medications from am administered as patient is back from EGD and able to tolerate PO- verified with pharmacist. VSS, A+O. Dr Morgan in room to assess pt and updated on POC.
[2022-03-09] MEDS ORDERED: OMEPRAZOLE20 MG PO (11:39)
[2022-03-09] MEDS ORDERED: ONDANSETRON HCL4 MG PO (11:40)
--- NOTE | 2022-03-09 12:24 | NUR ---
DISCHARGE TEACHING PROVIDE. PT EDUCATED, VERBALIZES UNDERSTANDING AND HAS NO FURTHER QUESTIONS. IV REMOVED, CATHETER INTACT. PT TOLERATED LUNCH, REG DIET. NO FURTHER NEEDS AT THIS TIME.
--- NOTE | 2022-03-09 14:09 | NUR ---
PT ALERT, ORIENTED DRESSED AND SITTING ON COUCH ENJOYING THE SUN. PT IS READY FOR DC, BEGAN A DISCUSSION REQUESTING SUGGESTIONS FOR A [facility] HOME. GAVE PT IDEAS FOR ONLINE AND THEN SHE BEGAN TO SHARE HER LATEST DIAGNOSIS. PT NEEDS WISDOM AND DIRECTION FOR NEXT TREATMENT. REQUESTED PRAYER, GAVE ENCOURAGEMENT AND BLESSING. EMMANUEL MCCALL AND SN IN TO FINISH DC. WILL FOLLOW
--- NOTE | 2022-03-10 06:04 | CONS ---
[facility] [address] [place], [place] [address] Signed DATE OF CONSULTATION: 03/09/2022 CHIEF COMPLAINT: Early satiety. 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 She was initially from the [place], [place] area, but had moved to [place] for many years when her daughter was in school. She has come back to the [facility] and a long-time friend. He happens to go to dialysis three days a week. She herself is diabetic. She has having nausea, vomiting, and early satiety. She describes chronic constipation after her two children were born vaginally. She did not have constipation before the children were born. Unfortunately, one daughter . Just in the last week or two for whatever reason, she was more dehydrated. Her blood pressure was low and she was feeling lightheaded and finally came to the emergency room. She has responded nicely to IV fluids. Her renal function has improved. She is slightly anemic. She did have her left adrenal gland and kidney removed in 2019 in [place], [place] for clear cell cancer. She also describes having colonic polyps with multiple colonoscopies. She told me it is not uncommon to go three weeks without a bowel movement. She frequently has to digitally disimpact herself to go to the bathroom. She does not take a fiber supplement, but frequently uses polyethylene glycol. She has even taken an entire bowel prep with no results whatsoever and had to cancel colonoscopies. She said at some point, she is thinking she may go back down to [place], [place]. Unfortunately, she has no primary care provider here. She has been doing that long distance from [place]. She does have a installer helper that she works with here locally. She finally came to our emergency room for evaluation. She has been hydrated and doing much better. Her chest x-ray was unremarkable. The CT scan of abdomen and pelvis showed an 8 mm and a 9 mm nodule in the right lower lung. Obviously that needs to be followed up as an outpatient. She had her adrenal function checked and that is fine along with her thyroid function. Her gastric emptying scan was completely unremarkable. 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 Currently, James said she feels at her baseline, was wondering if she could go home today. PAST MEDICAL HISTORY: 1. Type 2 diabetes. 2. Chronic renal insufficiency. 3. Cervical and lumbar herniated disk. 4. Fibromyalgia. 5. New diagnosis of Parkinson disease. 6. Clear cell carcinoma of the left kidney. 7. Hypothyroidism. 8. Colonic polyps. 9. Depression. Electronically Signed By: AMINAH BRICEÑO MD 03/10/22 0604 PATIENT NAME: JAMES MANZANO CONSULTATION DATE OF : 59 REPORT #: [id number] PHYSICIAN: AMINAH BRICEÑO MD PCP: ELIA PAYTON PA-C REPORT IS CONFIDENTIAL AND NOT TO BE RELEASED WITHOUT AUTHORIZATION [facility] [address], [place] [address] Signed PAST SURGICAL HISTORY: 1. Bilateral tubal ligation followed by total abdominal hysterectomy. 2. Open cholecystectomy. 3. Left nephrectomy in 2019 along with adrenalectomy. 4. Cervical fusion with a cage placed. 5. Carpal tunnel release. 6. Left ankle surgery with metal remaining. 7. Multiple colonoscopies. SOCIAL HISTORY: She does not smoke or drink. She is now to her long-time friend who goes to dialysis three days a week. She had two daughters, both born vaginally, one unfortunately . She has made herself a DNR/DNI with no heroic measures. I think mainly when she was diagnosed with her renal cancer. It seems a little excessive currently, but she needs to discuss it with her primary care provider. 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 Dr. Gilles Escobar is her installer helper. Otherwise, her primary care provider and other specialists are in [place], [place]. FAMILY HISTORY: She said it is a large family with multiple medical issues. REVIEW OF SYSTEMS: She had 10 systems reviewed. Denies included all the pertinent positives in the above. ALLERGIES: Statins including simvastatin, atorvastatin, however she can take pravastatin. MEDICATIONS: 1. Zofran. 2. Oxycodone. 3. Pravastatin. 4. Effexor. 5. Levothyroxine. 6. Gabapentin/. 7. Polyethylene glycol. 8. Insulin. 9. Primidone. 10. Amantadine. 11. Pioglitazone/. 12. Pravastatin. 13. Albuterol. Electronically Signed By: AMINAH BRICEÑO MD 03/10/22 0604 PATIENT NAME: JAMES MANZANO CONSULTATION DATE OF : 59 REPORT #: [id number] PHYSICIAN: AMINAH BRICEÑO MD PCP: ELIA PAYTON PA-C REPORT IS CONFIDENTIAL AND NOT TO BE RELEASED WITHOUT AUTHORIZATION [address] [address] Signed PHYSICAL EXAMINATION: VITAL SIGNS: Her blood pressure 139/81, heart rate 71, respiratory rate 18, and temperature is 97.8. She is 99% on room air. She is 5 feet 8 inches tall and 92 kg. GENERAL: James is a 66-year-old female, lying supine in her hospital bed. Our nurse Keerthi is with us. She appears quite a bit older than her stated age. She is very cooperative and has actually a very good memory. No obvious Parkinson's tremors that I can see currently. No shortness of breath or dyspnea during our conversation. LUNGS: Appear to be clear to auscultation bilaterally. HEART: Regular rate and rhythm without murmurs. ABDOMEN: Actually, soft, flat, and nontender. She tells me it is at baseline. RECTAL: Exam is not performed today. LABORATORY DATA: Her white count was 10.2, it is now 6.6, her hemoglobin was 12.3, it is now 11.0. Her neutrophils were 76, they are down to 67. Platelets are 145. BUN was 44, it is now 25. The creatinine was 2.59, it is now 1.49. Her blood sugars are running anywhere from 149-291. The urine specific gravity was high on admission at 1.030. Liver function tests are negative. EKG showed normal sinus rhythm. Her albumin was 3.8. The hemoglobin A1c was high at 8.3. Her lactic acid was high at 4.3, it dropped to 2.5, I am sure by now it has normalized. The lipase was normal at 30. The COVID test was negative. RADIOGRAPHIC STUDIES: Chest x-ray was unremarkable. The CT scan of abdomen and pelvis showed the 8 mm and 9 mm right lower lobe lung nodules, but no other serious findings. The gastric emptying scan was unremarkable. ASSESSMENT AND PLAN: James is a 66-year-old female, who presents as above. It sounds like she has a pelvic outlet obstruction leading to her chronic constipation. That is certainly can be dealt with as an outpatient with advance testing. For whatever reason, she is having some acute on chronic nausea, vomiting, and early satiety. There are certainly multiple reasons why she could have that. However, the gastric emptying scan was not concerning. I have been asked to do an upper endoscopy for her today. From what she tells me, it would be her first upper endoscopy. I reviewed with her in detail relative to her previous colonoscopies. She understands the need for the sedation. Her will be on dialysis today, not be able to take her home later today. We will be able to add her on later this morning with the help of monitored anesthesia care. We will take biopsies and eventually she will come back to her room. There is risk including, but not limited to gas bloating, crampy abdominal pain, bleeding, perforation requiring surgery, and missed diagnosis. She has expressed understanding, agrees with above plan. In the meantime, she is hoping to establish with a primary care provider here in [facility]. Electronically Signed By: AMINAH BRICEÑO MD 03/10/22 0604 PATIENT NAME: JAMES MANZANO CONSULTATION DATE OF : 59 REPORT #: [id number] PHYSICIAN: AMINAH BRICEÑO MD PCP: ELIA PAYTON PA-C REPORT IS CONFIDENTIAL AND NOT TO BE RELEASED WITHOUT AUTHORIZATION [facility] [address] [place] [address] Signed Aminah Briceño MD ALB/MODL /[id number] cc: DO Aminah Zelaya MD Copies: GILLES ESCOBAR ANDREW L MD ~ Electronically Signed By: AMINAH BRICEÑO MD 03/10/22 0604 PATIENT NAME: JAMES MANZANO CONSULTATION DATE OF : 59 REPORT #: [id number] PHYSICIAN: AMINAH BRICEÑO MD PCP: ELIA PAYTON PA-C REPORT IS CONFIDENTIAL AND NOT TO BE RELEASED WITHOUT AUTHORIZATION
--- NOTE | 2022-03-10 06:04 | OR ---
[facility] [address] [place], [place] [address] Signed DATE OF OPERATION: 03/09/2022 SURGEON: Aminah Briceño MD PREOPERATIVE DIAGNOSES: 1. Early satiety. 2. Nausea and vomiting. 3. Esophageal dysphagia. 4. Cough. POSTOPERATIVE DIAGNOSES: 1. Moderate diffuse hemorrhagic gastritis. 2. Moderate-sized hiatal hernia. PROCEDURE: EGD with CLOtest and biopsies of the duodenum and antrum. ESTIMATED BLOOD LOSS: None. INDICATIONS: James is a 66-year-old obese diabetic female, who lived in [place], [place] for many years. She has returned back to [place], [place]. She is now . She has had longstanding diabetes. She has been talking about chronic dry cough. After our procedure today, she mentioned acid reflux. She talks about having early satiety with nausea and vomiting. She also was mentioning esophageal dysphagia. Interestingly for all of her medical issues, I do not see any medicine listed for her stomach. 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 In the meantime, her dehydration has been reversed. Her renal functions recovered and she is doing much better. She actually was telling me she felt at her baseline. I can see she is slightly anemic with a hemoglobin of 11.0. I had met with her this morning and had a long discussion with her and reviewed her records. She has been through multiple colonoscopies and had colonic polyps removed. As a result, she is familiar with this process. I reviewed with her upper endoscopy in detail. There is risk including, but not limited to gas bloating, crampy abdominal pain, bleeding, perforation requiring surgery, and missed diagnosis. Also, given her acute situation and her advanced medical issues, we asked for monitored anesthesia care. That proved to be a aguilar decision as she coughed during much of the case. She had expressed understanding and wished to proceed. Electronically Signed By: AMINAH BRICEÑO MD 03/10/22 0604 PATIENT NAME: JAMES MANZANO OPERATIVE REPORT DATE OF : 59 REPORT #: [id number] PHYSICIAN: AMINAH BRICEÑO MD PCP: ELIA PAYTON PA-C REPORT IS CONFIDENTIAL AND NOT TO BE RELEASED WITHOUT AUTHORIZATION [facility] [address] [place] [address] Signed PROCEDURE NOTE: James was taken into our endoscopy suite and placed in the supine semi-recumbent position. with our anesthesia provider, she made it very clear that she is a DNR and DNI with no heroic measures. She told us the POLST form is with her primary care provider in [place], [place]. We therefore had her sign a waiver just for the procedure and 30 minutes in recovery room. A bite block was utilized for the case. She was given monitored anesthesia care with propofol infusion. The adult gastroscope was introduced and advanced under direct visualization of camera without difficulty. The duodenum was unremarkable. We took a single biopsy of the duodenum for pathologic review. The pyloric bulb did show some mild erythematous changes as well. There were no ulcers in the bulb. The stomach showed no ulcers. However, the stomach showed moderate diffuse hemorrhagic gastritis. I am sure that is contributing to her anemia and her sensation of early satiety. Upon retroflexion of the scope, I could see a moderate-sized hiatal hernia. I withdrew the scope up through the area of the GE junction, which was compliant without stricture. It was difficult to measure the hiatal hernia due to her repetitive coughing. I am estimating about 4 cm. Her Z-line is actually relatively intact. Just a little bit of irritation. There was no Dove's mucosa. No esophageal or gastric varices. No inflammatory changes in her distal esophagus. The middle and upper esophagus were unremarkable. After this, the gas was suctioned out and the gastroscope removed. James tolerated the procedure quite well. RECOMMENDATIONS: James will return to her hospital bed on the Internal Medicine Service. We will start her on Protonix 40 mg p.o. b.i.d. She can resume her diabetic diet. Aminah Briceño MD ALB/MODL /[id number] cc: DO Aminah Zelaya MD Copies: MYNOR VILLAFANA DO Electronically Signed By: AMINAH BRICEÑO MD 03/10/22 0604 PATIENT NAME: JAMES MANZANO OPERATIVE REPORT DATE OF : 59 REPORT #: [id number] PHYSICIAN: AMINAH BRICEÑO MD PCP: ELIA PAYTON PA-C REPORT IS CONFIDENTIAL AND NOT TO BE RELEASED WITHOUT AUTHORIZATION [address] [address] Signed AMINAH BRICEÑO MD ~ Electronically Signed By: AMINAH BRICEÑO MD 03/10/22 0604 PATIENT NAME: JAMES MANZANO OPERATIVE REPORT DATE OF : 59 REPORT #: [id number] PHYSICIAN: AMINAH BRICEÑO MD PCP: ELIA PAYTON PA-C REPORT IS CONFIDENTIAL AND NOT TO BE RELEASED WITHOUT AUTHORIZATION
--- NOTE | 2022-03-11 11:34 | PATH ---
[facility] [address] [place], [place] [address] Signed THIS IS AN ADDENDUM REPORT SPECIMEN(S): A DUODENAL BIOPSY SPECIMEN(S): B ANTRUM/PYLORUS BIOPSY SPECIMEN SOURCE: A. DUODENAL BIOPSY B. ANTRUM/PYLORUS BIOPSY CLINICAL HISTORY: Chronic constipation, vomiting, dysphagia, hypotension. Postop: Gastritis, gastroduodenitis, hiatal hernia. FINAL PATHOLOGIC DIAGNOSIS: A. Duodenum, biopsy: - Duodenal mucosa with focal prominent Martín's glands. - Negative for increased intraepithelial lymphocytes or villous blunting. - Negative for dysplasia or malignancy. B. Stomach, antrum/pylorus, biopsy: - Antral mucosa with chronic, inactive gastritis and reactive gastropathy. - Negative for Helicobacter organisms on HE stain. - Negative for dysplasia or malignancy. - See comment. COMMENT: Regarding specimen B: An H. pylori immunohistochemical stain is pending and will be reported in an addendum. NAL:cml:C2NR MICROSCOPIC EXAMINATION: Histologic sections of all submitted blocks are examined by light microscopy. These findings, together with the gross examination, support the pathologic diagnosis. GROSS DESCRIPTION: Two specimens are received in two containers, labeled "RM." A. The specimen, labeled "RM, duodenal biopsy," is received in formalin and consists of one taylor soft tissue fragment that measures 0.2 cm in greatest dimension. The specimen is entirely submitted in cassette (A1). B. The specimen, labeled "RM, antrum biopsy," is received in formalin and PATIENT NAME: JAMES MANZANO PATHOLOGY DATE OF : 59 REPORT #: [id number] PHYSICIAN: ALVARO CHATMAN PCP: ELIA PAYTON PA-C REPORT IS CONFIDENTIAL AND NOT TO BE RELEASED WITHOUT AUTHORIZATION [facility] [address] [place] [id number] Signed consists of one taylor soft tissue fragment that measures 0.2 cm in greatest dimension. The specimen is entirely submitted in cassette (B1). JS (under the direct supervision of a pathologist) The Gross Description was prepared using a voice recognition system. The report was reviewed for accuracy; however, sound-alike word errors, addition and/or deletions may occur. If there is any question about this report, please contact Client Services. PERFORMING LABORATORY: The technical component was performed by [facility], [address] [place] [id number] (CLIA# [id number]). [facility], [address] [place] [address] (CLIA# [id number]). ADDITIONAL NOTES: Immunohistochemical and/or in situ hybridization studies were performed on this case with the appropriate positive controls that react as expected. This test was developed and its performance characteristics determined by [facility]. It has not been cleared or approved by the U.S. Food and Drug Administration. The FDA has determined that such clearance or approval is not necessary. This test is used for clinical purposes. It should not be regarded as investigational or for research. [facility] is certified under the Clinical Laboratory Improvement Amendments of 1988 (CLIA) as qualified to perform high complexity clinical laboratory testing. This assay has not been validated for specimens that have been decalcified. The technical component was performed by [facility], [address] [place] [id number] (CLIA# [id number]). Professional interpretation was performed by [facility], [address] [address] (CLIA# [id number]). REASON FOR ADDENDUM: To add results of additional testing. ADDENDUM PATHOLOGIC DIAGNOSIS: Regarding specimen B: - An H. pylori immunohistochemical stain (with appropriately staining controls) is negative for Helicobacter organisms. PATIENT NAME: JAMES MANZANO PATHOLOGY DATE OF : 59 REPORT #: [id number] PHYSICIAN: ALVARO CHATMAN PCP: ELIA PAYTON PA-C REPORT IS CONFIDENTIAL AND NOT TO BE RELEASED WITHOUT AUTHORIZATION [facility] [address] [place], [place] [address] Signed NAL:cml Diagnostician: Karen Alonso MD Pathologist Electronically Signed 03/11/2022 Copies: ~ PATIENT NAME: JAMES MANZANO PATHOLOGY DATE OF : 59 REPORT #: [id number] PHYSICIAN: ALVARO CHATMAN PCP: ELIA PAYTON PA-C REPORT IS CONFIDENTIAL AND NOT TO BE RELEASED WITHOUT AUTHORIZATION
== END 2022-03-09 13:56 | disposition home or self-care (01) | DRG 683 ==
LOC: ED 10:34 → CCU 10:35 → MS 14:55 → CCU 14:56 → MS 03-08 18:45
PROVIDERS: Colon & Rectal Surgery; ADMIT Internal Medicine; ATTEND Internal Medicine
PROC: 0DB68ZX Excision of Stomach, Via Natural or Artificial Opening Endoscopic, Diagnostic (ICD-10-PCS; 2022-03-09)
PROC: 0DB98ZX Excision of Duodenum, Via Natural or Artificial Opening Endoscopic, Diagnostic (ICD-10-PCS; principal; 2022-03-09 09:00)
DX: N17.9 Acute kidney failure, unspecified (principal); E87.2 Acidosis; N18.32 Chronic kidney disease, stage 3b; Z20.822 Contact with and (suspected) exposure to COVID-19; E86.0 Dehydration; I95.9 Hypotension, unspecified; K29.50 Unspecified chronic gastritis without bleeding; R91.1 Solitary pulmonary nodule; E11.65 Type 2 diabetes mellitus with hyperglycemia; E78.5 Hyperlipidemia, unspecified; G89.4 Chronic pain syndrome; E11.40 Type 2 diabetes mellitus with diabetic neuropathy, unspecified; K44.9 Diaphragmatic hernia without obstruction or gangrene; E11.51 Type 2 diabetes mellitus with diabetic peripheral angiopathy without gangrene; M79.7 Fibromyalgia; G20 Parkinson's disease; F02.80 Dementia in other diseases classified elsewhere, unspecified severity, without behavioral disturbance, psychotic disturbance, mood disturbance, and anxiety; R11.0 Nausea; Z98.890 Other specified postprocedural states; Z98.51 Tubal ligation status; Z98.1 Arthrodesis status; Z90.49 Acquired absence of other specified parts of digestive tract; Z90.5 Acquired absence of kidney; Z88.8 Allergy status to other drugs, medicaments and biological substances; Z79.4 Long term (current) use of insulin; Z79.899 Other long term (current) drug therapy
CPT/HCPCS: 36415; 51702; 71045; 74176; 78264; 80048; 80053; 81001; 82533; 82570; 83036; 83605; 84300; 84439; 84443; 84550; 85025; 87077; 87502; 93005; 93010; 99285-25; A9270; A9541; C9113; J0692; J0780; J0834; J1650; J1815; J2405; J2704; J7030; J7121; U0003

== ENCOUNTER 2022-03-17 10:06 | Observation (INO) | payer MEDICARE ==
[~2022-03-17] VITALS: Ht 172.7 cm; Wt 95.2 kg
[~2022-03-17 10:06] MED LIST changes: +BASAGLAR K100 UNIT/1 SUB-Q; +GABAPENTIN300 MG PO; +HUMALOG KW200 UNIT/1 SUB-Q; +OMEPRAZOLE20 MG PO; +ONDANSETRON HCL4 MG PO; +REPATHA SU140 MG/1 M SUB-Q; +ZANAFLEX4 MG PO
--- OUTSIDE RECORDS SUMMARY | 2022-03-17 10:08 | XMS ---
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 E.D. VISIT COUNT (12 MO.) 3 [facility] 5 [facility] TOTAL 8 NOTE: Visits indicate total known visits. ED/UCC VISIT TRACKING (12 MO.) 03/17/2022 10:06 [facility] [place] TYPE: Emergency COMPLAINT: - LOW B/P 03/06/2022 10:34 [facility] [place] TYPE: Emergency COMPLAINT: - LOW B/P, BLURRED SIGHT, HEADACHE, SOB 01/26/2022 19:50 [facility] [place] TYPE: Emergency COMPLAINT: - VOMITING DIAGNOSES: - Other professor of voice (current) drug therapy - custodial (current) use of insulin - Unspecified chronic gastritis without bleeding - Type 2 diabetes mellitus without complications - Allergy status to other drugs, medicaments and biological substances - custodial (current) use of anticoagulants - Nausea with vomiting, unspecified 10/22/2021 14:30 [facility] TYPE: Emergency COMPLAINT: - FALL, NECK PAIN, POSS HEAD INJURY DIAGNOSES: - Concussion without loss of consciousness, initial encounter - cocoa roaster (current) use of insulin - Contusion of unspecified part of neck, initial encounter - Fall on same level, unspecified, initial encounter - Other peripheral vertigo, unspecified ear - Allergy status to other drugs, medicaments and biological substances - Type 2 diabetes mellitus without complications - Dizziness and giddiness - Other group home (current) drug therapy 09/02/2021 09:01 [facility] DIAGNOSES: - Multiple fractures of ribs, right side, subsequent encounter for fracture with routine healing - Rib Pain 08/11/2021 11:10 [facility] [place] TYPE: Emergency DIAGNOSES: - Emesis - Rib Pain - Vomiting, unspecified - Multiple fractures of ribs, right side, initial encounter for closed fracture - Rib Pain/Vomiitng 07/24/2021 20:12 [facility] [place] TYPE: Emergency DIAGNOSES: - vision trouble - Other visual disturbances - Vision Changes 03/22/2021 15:50 [facility] TYPE: Emergency COMPLAINT: - HEADACHES, BRUISING DIAGNOSES: - Spontaneous ecchymoses - Headache, unspecified - Pure hypercholesterolemia, unspecified - cocoa roaster (current) use of insulin - Essential (primary) hypertension - Allergy status to other drugs, medicaments and biological substances - Spontaneous ecchymoses - Other professor of voice (current) drug therapy - Type 2 diabetes mellitus without complications INPATIENT VISIT TRACKING (12 MO.) 03/06/2022 14:[address] [facility] [place] TYPE: Medical Surgical COMPLAINT: - HYPOTENSION DIAGNOSES: - Allergy status to other drugs, medicaments and biological substances - Type 2 diabetes mellitus with diabetic neuropathy, unspecified - Type 2 diabetes mellitus with diabetic peripheral angiopathy without gangrene - Parkinson's disease - Contact with and (suspected) exposure to COVID-19 - Dementia in other diseases classified elsewhere without behavioral disturbance - cocoa roaster (current) use of insulin - Chronic kidney disease, stage 3b - Type 2 diabetes mellitus with diabetic peripheral angiopathy without gangrene - Arthrodesis status - Parkinson's disease - Type 2 diabetes mellitus with hyperglycemia - Tubal ligation status - Acute kidney failure, unspecified - Unspecified chronic gastritis without bleeding - Arthrodesis status - Tubal ligation status - Hyperlipidemia, unspecified - Hyperlipidemia, unspecified - Fibromyalgia - Other specified postprocedural states - Chronic pain syndrome - Dehydration - Diaphragmatic hernia without obstruction or gangrene - Acidosis - Dementia in other diseases classified elsewhere without behavioral disturbance - Diaphragmatic hernia without obstruction or gangrene - Acute kidney failure, unspecified - Hypotension, unspecified - Other professor of voice (current) drug therapy - Dehydration - Type 2 diabetes mellitus with diabetic neuropathy, unspecified - Chronic kidney disease, stage 3b - Acidosis - Chronic pain syndrome - Acquired absence of other specified parts of digestive tract - Type 2 diabetes mellitus with hyperglycemia - Fibromyalgia - Solitary pulmonary nodule - Nausea - Acquired absence of other specified parts of digestive tract - Nausea - custodial (current) use of insulin - Solitary pulmonary nodule - Allergy status to other drugs, medicaments and biological substances - Acquired absence of kidney - Contact with and (suspected) exposure to COVID-19 - Unspecified chronic gastritis without bleeding - Other specified postprocedural states - Acquired absence of kidney - Other group home (current) drug therapy [email or web address]
--- NOTE | 2022-03-17 15:16 | NUR ---
REPORT RECEIVED FROM ADMINISTRATIVE MEDICAL DIRECTOR AND PT. ARRIVED VIA STRETCHER. PT. TRANSFERRED TO THE BED WITH SBA AND REPORTS SOME DIZZINESS. MRI SCREENING COMPLETED AND IMAGING CONTACTED. EMMANUEL GARCIA IN THE ROOM TO ADMIT. PT. PLACED ON TELEMETRY.
--- NOTE | 2022-03-17 15:45 | NUR ---
PT. LEFT WITH DADO OPERATOR FOR MRI. CATHETER EMPTIED, IV S.L.
[2022-03-17] MEDS ORDERED: PRAZOSIN HCL2 MG PO (16:09)
[2022-03-17] MEDS ORDERED: JARDIANCE10 MG PO (16:14)
--- NOTE | 2022-03-17 16:41 | NUR ---
PT BACK FROM MRI, IN BED. VISITOR AT BEDSIDE. DENIES NEEDS AT THIS TIME. CALL LIGHT WITHIN REACH.
--- NOTE | 2022-03-17 17:27 | NUR ---
PT RESTING IN BED WATCHING TV. DENIES NEEDS AT THIS TIME. CALL LIGHT WITHIN REACH. VISITOR AT BEDSIDE. C/O LIGHTHEADEDNESS WHEN SITTING UP STRAIGHT, DENIES WHILE LYING DOWN. EDUCATED CONFERENCE PLANNER LIGHT USE FOR ANY AMBULATION, VERBALIZED UNDERSTANDING.
[2022-03-17] MEDS ORDERED: MIRALAX17 GM PO (18:01)
--- NOTE | 2022-03-17 18:01 | NUR ---
MED REC COMPLETE
--- NOTE | 2022-03-17 21:00 | NUR ---
IN TO GET VITALS, EMPTIED BROWNING, SETUP BSC FOR PT TO SBA/INDPT USE, FRESH ICE WATER GIVEN, NO FURTHER NEEDS AT THIS TIME
--- NOTE | 2022-03-17 21:24 | NUR ---
pt alert and oriented, clean gown given on requests, on room air. cbg 233, received 5 units ss insulin, cooperative, aware of s/sx hypo/hyperglycemia. sl rfa patent, ivf infusing lfa. on room air, lungs dim at bases, moist non productive cough noted at times. abd soft, irene, stated no bm x1 wk. received scheduled bisacodyl po. bsc 1pa. aware to call if lightheaded. f/c not chronic patent, draining clear yellow urine. uses call light, tolerating liquid well, no n/s. watching tv.
--- NOTE | 2022-03-18 00:04 | NUR ---
pt awake, watchingt v and playing with her phone, no further c/o pain. states she has insomnia and cant sleep. denies need for warm blanket, tolerating liquids well, no c/o lightheadness
--- NOTE | 2022-03-18 01:23 | NUR ---
AWAKE, PLAYING WITH PHONE, NO C/O PAIN, OR N/V. CALL LIGHT AT HANDS REACH
--- NOTE | 2022-03-18 03:17 | NUR ---
pt drowsy, playing in phone, no c/o pain or emesis. no bm f/c patent. turns and repositions in place.
--- NOTE | 2022-03-18 08:24 | NUR ---
PT. ON THE BSC HAD AN EXTREMELY LARGE FORMED BM. SMALL AMOUNT OF BLOOD AND PT. REPORTS HX OF HEMORRHOIDS. CATH. EMPTIED OF 800ML DILUTE URINE. SHE DENIES FEELING DIZZY OR LIGHT HEADED WITH ACTIVITY. LEFT RESTING WITH CALL LIGHT IN REACH.
--- NOTE | 2022-03-18 09:54 | NUR ---
PT RESTING IN BED, EASILY AWAKENS. C/O HEADACHE, GIVEN TYLENOL PREVIOUSLY. WILL CALL IF NEEDS OXYCODONE. DENIES FURTHER NEEDS AT THIS TIME. CALL LIGHT WITHIN REACH.
[2022-03-18] MEDS ORDERED: FLUDROCORTISON0.1 MG PO (11:02)
[2022-03-18] MEDS ORDERED: LACTULOSE10 GM/15 M PO (11:34)
[2022-03-18] MEDS ORDERED: DULCOLAX5 MG PO (11:34)
--- NOTE | 2022-03-18 12:56 | NUR ---
ASKED BRIT IF SHE WOULD LIKE TO TAKE A SHOWER TODAY AND SHE SAID YES BUT NOW THAT SHE IS GETTING DISCHARGED SHE SAID SHE WILL WAIT UNTIL SHE GETS HOME.
--- NOTE | 2022-03-20 08:54 | EKG ---
[facility] [address] [facility] [facility] [place] [address] Signed Normal sinus rhythm Normal ECG When compared with ECG of 06-MAR-2022 12:04, Criteria for Septal infarct are no longer present Confirmed by PATRIA SHIRLEY MD ([id number]) on 03/20/2022 8:54:20 AM Electronically Signed By: PATRIA SHIRLEY MD 03/20/22 0854 PATIENT NAME: JAMES MANZANO Electrocardiogram DATE OF : 59 PHYSICIAN: PATRIA SHIRLEY MD REPORT #: [id number] REPORT IS CONFIDENTIAL AND NOT TO BE RELEASED WITHOUT AUTHORIZATION
== END 2022-03-18 13:15 | disposition home or self-care (01) ==
LOC: ED 10:06 → MS 10:07
PROVIDERS: ADMIT Internal Medicine; ATTEND Internal Medicine
DX: I95.9 Hypotension, unspecified (principal); G20 Parkinson's disease; E11.43 Type 2 diabetes mellitus with diabetic autonomic (poly)neuropathy; E11.65 Type 2 diabetes mellitus with hyperglycemia; R91.1 Solitary pulmonary nodule; K29.70 Gastritis, unspecified, without bleeding; E78.5 Hyperlipidemia, unspecified; F39 Unspecified mood [affective] disorder; M79.7 Fibromyalgia; G89.4 Chronic pain syndrome; E11.22 Type 2 diabetes mellitus with diabetic chronic kidney disease; N18.4 Chronic kidney disease, stage 4 (severe); Z79.4 Long term (current) use of insulin; Z85.89 Personal history of malignant neoplasm of other organs and systems; Z88.8 Allergy status to other drugs, medicaments and biological substances; E03.9 Hypothyroidism, unspecified; E89.6 Postprocedural adrenocortical (-medullary) hypofunction; Z90.5 Acquired absence of kidney; Z20.822 Contact with and (suspected) exposure to COVID-19
CPT/HCPCS: 36415; 70551; 71045; 80048; 80053; 81001; 83036; 83605; 84484; 85025; 87502; 93005; 93010; A9270; C9803; J1720; J1815; J7030; J7121; U0003

== ENCOUNTER 2022-08-25 14:10 | Emergency (ER) | payer MEDICARE ==
[~2022-08-25] VITALS: Ht 172.7 cm; Wt 95.5 kg
[~2022-08-25 14:10] MED LIST changes: +DULCOLAX5 MG PO; +FLUDROCORTISON0.1 MG PO; +JARDIANCE10 MG PO; +LACTULOSE10 GM/15 M PO; +PRAZOSIN HCL2 MG PO
--- OUTSIDE RECORDS SUMMARY | 2022-08-25 14:13 | XMS ---
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 Robert VISIT COUNT (12 MO.) 1 [facility] TOTAL 6 NOTE: Visits indicate total known visits. ED/UCC VISIT TRACKING (12 MO.) 08/25/2022 14:[facility] [place] TYPE: Emergency COMPLAINT: - FLU SYMPTOMS, SOB 03/17/2022 10:06 [facility] [place] TYPE: Emergency COMPLAINT: - LOW B/P 03/06/2022 10:34 [facility] [place] TYPE: Emergency COMPLAINT: - LOW B/P, BLURRED SIGHT, HEADACHE, SOB 01/26/2022 19:50 [facility] TYPE: Emergency COMPLAINT: - VOMITING DIAGNOSES: - medical terminologist (current) use of insulin - Nausea with vomiting, unspecified - Allergy status to other drugs, medicaments and biological substances - Unspecified chronic gastritis without bleeding - Other termite technician (current) drug therapy - medical terminologist (current) use of anticoagulants - Type 2 diabetes mellitus without complications 10/22/2021 14:30 [facility] TYPE: Emergency COMPLAINT: - FALL, NECK PAIN, POSS HEAD INJURY DIAGNOSES: - nursing home (current) use of insulin - Other [place] [facility] (current[facility] drug therapy - Type 2 diabetes mellitus without complications - Other peripheral vertigo, unspecified ear - Contusion of unspecified part of neck, initial encounter - Concussion without loss of consciousness, initial encounter - Dizziness and giddiness - Allergy status to other drugs, medicaments and biological substances - Fall on same level, unspecified, initial encounter [facility] DIAGNOSES: - Rib Pain - Multiple fractures of ribs, right side, subsequent encounter for fracture with routine healing INPATIENT VISIT TRACKING (12 MO.) 03/17/2022 10:07 [facility] [place] TYPE: Observation COMPLAINT: - ORTHOSTATIC HYPOTENSION DIAGNOSES: - Hypotension, unspecified - Type 2 diabetes mellitus with diabetic chronic kidney disease - Fibromyalgia - medical terminologist (current) use of insulin - Type 2 diabetes mellitus with diabetic autonomic (poly)neuropathy - Solitary pulmonary nodule - Gastritis, unspecified, without bleeding - Personal history of malignant neoplasm of other organs and systems - Chronic kidney disease, stage 4 (severe) - Hyperlipidemia, unspecified - Type 2 diabetes mellitus with hyperglycemia - Chronic pain syndrome - Hypothyroidism, unspecified - Parkinson's disease - Unspecified mood [affective] disorder - Acquired absence of kidney - Contact with and (suspected) exposure to COVID-19 - Allergy status to other drugs, medicaments and biological substances - Postprocedural adrenocortical (-medullary) hypofunction 03/06/2022 14:55 [facility] [place] TYPE: Medical Surgical COMPLAINT: - HYPOTENSION DIAGNOSES: - Type 2 diabetes mellitus with hyperglycemia - Type 2 diabetes mellitus with diabetic neuropathy, unspecified - Hyperlipidemia, unspecified - Acute kidney failure, unspecified - Solitary pulmonary nodule - Type 2 diabetes mellitus with diabetic peripheral angiopathy without gangrene - Acidosis - Chronic pain syndrome - Other [place] [facility] (current) drug therapy - Arthrodesis status - Nausea - medical terminologist (current) use of insulin - Dehydration - Chronic kidney disease, stage 3b - Other specified postprocedural states - Allergy status to other drugs, medicaments and biological substances - Diaphragmatic hernia without obstruction or gangrene - Contact with and (suspected) exposure to COVID-19 - Other specified postprocedural states - Dehydration - Contact with and (suspected) exposure to COVID-19 - Type 2 diabetes mellitus with hyperglycemia - Fibromyalgia - Type 2 diabetes mellitus with diabetic peripheral angiopathy without gangrene - Hyperlipidemia, unspecified - Hypotension, unspecified - Allergy status to other drugs, medicaments and biological substances - Arthrodesis status - Dementia in other diseases classified elsewhere without behavioral disturbance - Acquired absence of other specified parts of digestive tract - Acute kidney failure, unspecified - Tubal ligation status - Nausea - nursing home (current) use of insulin - Chronic kidney disease, stage 3b - Diaphragmatic hernia without obstruction or gangrene - Acidosis - Acquired absence of kidney - Unspecified chronic gastritis without bleeding - Acquired absence of other specified parts of digestive tract - Dementia in other diseases classified elsewhere without behavioral disturbance - Chronic pain syndrome - Type 2 diabetes mellitus with diabetic neuropathy, unspecified - Unspecified chronic gastritis without bleeding - Tubal ligation status - Solitary pulmonary nodule - Parkinson's disease - Fibromyalgia - Other termite technician (current) drug therapy - Acquired absence of kidney - Parkinson's disease [email or web address]
[2022-08-25] MEDS ORDERED: PRIMIDONE50 MG PO (14:42)
[2022-08-25] MEDS ORDERED: VENLAFAXINE HC150 MG PO (14:42)
[2022-08-25] MEDS ORDERED: ACETAMINOPHN-B1 EACH PO (14:42)
[2022-08-25] MEDS ORDERED: ROPINIROLE HCL1 MG PO (14:42)
[2022-08-25] MEDS ORDERED: PRAZOSIN HCL2 MG PO (14:42)
[2022-08-25] MEDS ORDERED: SUCRALFATE1 GM PO (14:42)
[2022-08-25] MEDS ORDERED: ADVAIR HFA 115-12 GM (14:43)
[2022-08-25] MEDS ORDERED: AEROCHAMBER PL1 EACH MISC (14:43)
[2022-08-25] MEDS ORDERED: ZOLPIDEM TARTRA10 MG (14:43)
[2022-08-25] MEDS ORDERED: COLACE CLEAR50 MG PO (14:43)
[2022-08-25] MEDS ORDERED: CONSTULOSE10 GM/15 M PO (14:43)
[2022-08-25] MEDS ORDERED: DECADRON6 MG PO (15:04)
[2022-08-25] MEDS ORDERED: IPRAT-ALBUT 0.5-3 ML INH (15:04)
--- NOTE | 2022-08-26 03:33 | EKG ---
[facility] [address] [facility] [place] [address] Signed Sinus tachycardia Left axis deviation Septal infarct , age undetermined Abnormal ECG When compared with ECG of 17-MAR-2022 10:48, Vent. rate has increased BY 49 BPM Questionable change in QRS duration Septal infarct is now present Confirmed by KORY MERCER MD ([id number]) on 08/26/2022 3:33:46 AM Electronically Signed By: KORY MERCER MD 08/26/22 0333 PATIENT NAME: JAMES MANZANO Electrocardiogram DATE OF : 59 PHYSICIAN: KORY MERCER MD REPORT #: [id number] REPORT IS CONFIDENTIAL AND NOT TO BE RELEASED WITHOUT AUTHORIZATION
== END 2022-08-25 16:45 | disposition home or self-care (01) ==
LOC: ED 14:10
DX: U07.1 COVID-19 (principal); J44.1 Chronic obstructive pulmonary disease with (acute) exacerbation; E11.22 Type 2 diabetes mellitus with diabetic chronic kidney disease; N18.4 Chronic kidney disease, stage 4 (severe); Z88.8 Allergy status to other drugs, medicaments and biological substances; Z79.899 Other long term (current) drug therapy; Z79.4 Long term (current) use of insulin
CPT/HCPCS: 36415; 71045; 80053; 85025; 93005; 93010; 94640; 96374; 96375; 99285-25; J1100

== ENCOUNTER 2022-08-26 16:08 | Emergency (ER) | payer MEDICARE ==
[~2022-08-26] VITALS: Ht 172.7 cm; Wt 95.5 kg
[~2022-08-26 16:08] MED LIST changes: +ACETAMINOPHN-B1 EACH PO; +ADVAIR HFA 115-12 GM; +AEROCHAMBER PL1 EACH MISC; +COLACE CLEAR50 MG PO; +CONSTULOSE10 GM/15 M PO; +DECADRON6 MG PO; +IPRAT-ALBUT 0.5-3 ML INH; +PRIMIDONE50 MG PO; +ROPINIROLE HCL1 MG PO; +SUCRALFATE1 GM PO; +VENLAFAXINE HC150 MG PO; +ZOLPIDEM TARTRA10 MG
--- OUTSIDE RECORDS SUMMARY | 2022-08-26 16:10 | XMS ---
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 EDanitza VISIT COUNT (12 MO.) [address] [place] [address] TOTAL 7 NOTE: Visits indicate total known visits. ED/UCC VISIT TRACKING (12 MO.) 08/26/2022 16:09 [facility] [place] TYPE: Emergency COMPLAINT: - DIFFICULTY BREATHING 08/25/2022 14:10 [facility] [place] TYPE: Emergency COMPLAINT: - FLU SYMPTOMS, SOB 03/17/2022 10:06 [facility] [place] TYPE: Emergency COMPLAINT: - LOW B/P 03/06/2022 10:34 [facility] [place] TYPE: Emergency COMPLAINT: - LOW B/P, BLURRED SIGHT, HEADACHE, SOB 01/26/2022 19:50 [facility] [place] TYPE: Emergency COMPLAINT: - VOMITING DIAGNOSES: - Unspecified chronic gastritis without bleeding - Other penitentiary (current) drug therapy - intermodal customer service (current) use of anticoagulants - Type 2 diabetes mellitus without complications - jail (current) use of insulin - Nausea with vomiting, unspecified - Allergy status to other drugs, medicaments and biological substances 10/22/2021 14:30 [facility] [place] TYPE: Emergency COMPLAINT: - FALL, NECK PAIN, POSS HEAD INJURY DIAGNOSES: - Contusion of unspecified part of neck, initial encounter - Concussion without loss of consciousness, initial encounter - Dizziness and giddiness - Allergy status to other drugs, medicaments and biological substances - Fall on same level, unspecified, initial encounter - intermodal customer service (current) use of insulin - Other penitentiary (current) drug therapy - Type 2 diabetes mellitus without complications - Other peripheral vertigo, unspecified ear 09[facility]02/2021 09:[facility] DIAGNOSES: - Multiple fractures of ribs, right side, subsequent encounter for fracture with routine healing - Rib Pain INPATIENT VISIT TRACKING (12 MO.) 03/17/2022 10:07 [facility] TYPE: Observation COMPLAINT: - ORTHOSTATIC HYPOTENSION DIAGNOSES: - Chronic kidney disease, stage 4 (severe) - Hyperlipidemia, unspecified - Type 2 diabetes mellitus with hyperglycemia - Chronic pain syndrome - Hypothyroidism, unspecified - Parkinson's disease - Unspecified mood [affective] disorder - Acquired absence of kidney - Contact with and (suspected) exposure to COVID-19 - Allergy status to other drugs, medicaments and biological substances - Postprocedural adrenocortical (-medullary) hypofunction - Hypotension, unspecified - Type 2 diabetes mellitus with diabetic chronic kidney disease - Fibromyalgia - jail (current) use of insulin - Type 2 diabetes mellitus with diabetic autonomic (poly)neuropathy - Solitary pulmonary nodule - Gastritis, unspecified, without bleeding - Personal history of malignant neoplasm of other organs and systems 03/06/2022 14:[address] [facility] [place] TYPE: Medical Surgical COMPLAINT: - HYPOTENSION DIAGNOSES: - Fibromyalgia - Type 2 diabetes mellitus [...] - Tubal ligation status - Nausea - jail (current) use of insulin - Chronic kidney [...] - Parkinson's disease - Fibromyalgia - Other penitentiary (current) drug therapy - Acquired absence of kidney - Parkinson's disease - Type 2 diabetes mellitus with hyperglycemia - Type 2 diabetes mellitus with diabetic neuropathy, unspecified - Hyperlipidemia, unspecified - Acute kidney failure, unspecified - Solitary pulmonary nodule - Type 2 diabetes mellitus with diabetic peripheral angiopathy without gangrene - Acidosis - Chronic pain syndrome - Other penitentiary (current) drug therapy - Arthrodesis status - Nausea - jail (current) use of insulin - Dehydration - [...] - Type 2 diabetes mellitus with hyperglycemia [email or web address]
== END 2022-08-26 18:39 | disposition home or self-care (01) ==
LOC: ED 16:08
DX: U07.1 COVID-19 (principal); J44.1 Chronic obstructive pulmonary disease with (acute) exacerbation; E11.22 Type 2 diabetes mellitus with diabetic chronic kidney disease; N18.4 Chronic kidney disease, stage 4 (severe); G20 Parkinson's disease; M79.7 Fibromyalgia; G89.29 Other chronic pain; Z88.8 Allergy status to other drugs, medicaments and biological substances; Z79.891 Long term (current) use of opiate analgesic; Z79.899 Other long term (current) drug therapy; Z79.4 Long term (current) use of insulin; Z79.51 Long term (current) use of inhaled steroids
CPT/HCPCS: 94640; 99284-25; A9270; J8540

== ENCOUNTER 2023-07-14 13:21 | Emergency (ER) | payer MEDICARE ==
[~2023-07-14] VITALS: Ht 172.7 cm; Wt 88.9 kg
[~2023-07-14 13:21] MED LIST changes: +ASPIRIN81 MG PO; +CLOPIDOGREL75 MG PO; +GABAPENTIN800 MG PO; +INGREZZA80 MG PO; +LIDOCAINE HCL100 ML MT; +LIDOCAINE-PRILOC5 GM TOP; +OPDIVO100 MG/10 IV; +SOLU-MEDRO125 MG/21 IV; +YERVOY IV
--- OUTSIDE RECORDS SUMMARY | 2023-07-14 13:23 | XMS ---
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 - 3 Facilities in 90 Days CARE PROVIDERS Juan De La Rosa Physical Medicine \T\ Rehabilitation 10/26/2021-Current PHONE: Unknown Juan Ramon has no Care Guidelines for this patient. E.D. VISIT COUNT (12 MO.) [address] [place] [address] 1 [facility] TOTAL 6 NOTE: Visits indicate total known visits. ED/UCC VISIT TRACKING (12 MO.) 07/14/2023 13:21 [facility] [place] TYPE: Emergency COMPLAINT: - SHORTNESS OF BREATH [facility] DIAGNOSES: - Secondary malignant neoplasm of brain - Subacute cough - Cough - Shortness of Breath 04/27/2023 11:[address] [facility] TYPE: Emergency COMPLAINT: - L ARM WEAK/NUMB [facility]23 09[facility] DIAGNOSES: - Adjustment disorder with depressed mood - Dehydration - Unspecified adrenocortical insufficiency - Dizziness - Shortness of Breath 08/26/2022 16:09 [facility] TYPE: Emergency COMPLAINT: - DIFFICULTY BREATHING DIAGNOSES: - Allergy status to other drugs, medicaments and biological substances - Chronic kidney disease, stage 4 (severe) - Chronic obstructive pulmonary disease with (acute) exacerbation - COVID-19 - Fibromyalgia - jail (current) use of inhaled steroids - jail (current) use of insulin - jail (current) use of opiate analgesic - Other chronic pain - Other snf (current) drug therapy - Parkinson's disease - Shortness of breath - Type 2 diabetes mellitus with diabetic chronic kidney disease 08/25/2022 14:10 [facility] [place] TYPE: Emergency COMPLAINT: - FLU SYMPTOMS, SOB DIAGNOSES: - Allergy status to other drugs, medicaments and biological substances - Chronic kidney disease, stage 4 (severe) - Chronic obstructive pulmonary disease with (acute) exacerbation - COVID-19 - terminal superintendent (current) use of insulin - Other superintendent container terminal (current) drug therapy - Shortness of breath - Type 2 diabetes mellitus with diabetic chronic kidney disease INPATIENT VISIT TRACKING (12 MO.) 04/27/2023 15:[address] [facility] TYPE: [facility] COMPLAINT: - CVA DIAGNOSES: - Acquired absence of both cervix and uterus - Acquired absence of both cervix and uterus - Acquired absence of kidney - Acquired absence of kidney - Acquired absence of other specified parts of digestive tract - Acquired absence of other specified parts of digestive tract - Allergy status to other drugs, medicaments and biological substances - Allergy status to other drugs, medicaments and biological substances - Arthrodesis status - Arthrodesis status - Cerebral infarction due to thrombosis of right middle cerebral artery - Cerebral infarction due to unspecified occlusion or stenosis of right middle cerebral artery - Cerebral infarction due to unspecified occlusion or stenosis of right middle cerebral artery - Chronic kidney disease, unspecified - Chronic kidney disease, unspecified - Chronic pain syndrome - Chronic pain syndrome - Constipation, unspecified - Constipation, unspecified - Depression, unspecified - Depression, unspecified - Disappearance and of family member - Disappearance and of family member - Drug induced subacute dyskinesia - Drug induced subacute dyskinesia - Encounter for palliative care - Encounter for palliative care - Fibromyalgia - Fibromyalgia - Headache, unspecified - Headache, unspecified - Hemiplegia, unspecified affecting left nondominant side - Hormone replacement therapy - Hormone replacement therapy - Hypertensive chronic kidney disease with stage 1 through stage 4 chronic kidney disease, or unspecified chronic kidney disease - Hypertensive chronic kidney disease with stage 1 through stage 4 chronic kidney disease, or unspecified chronic kidney disease - Hypotension, unspecified - Hypotension, unspecified - Hypothyroidism, unspecified - Hypothyroidism, unspecified - Insomnia, unspecified - Insomnia, unspecified - jail (current) use of insulin - jail (current) use of insulin - jail (current) use of opiate analgesic - jail (current) use of opiate analgesic - Malignant neoplasm of unspecified kidney, except renal pelvis - Malignant neoplasm of unspecified kidney, except renal pelvis - 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 - 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 - NIHSS score 2 - NIHSS score 2 - Other intervertebral disc displacement, lumbar region - Other intervertebral disc displacement, lumbar region - Other superintendent container terminal (current) drug therapy - Other superintendent container terminal (current) drug therapy - Other specified postprocedural states - Other specified postprocedural states - Parkinson's disease - Parkinson's disease - Personal history of immunosuppression therapy - Personal history of immunosuppression therapy - Pure hypercholesterolemia, unspecified - Pure hypercholesterolemia, unspecified - Repeated falls - Repeated falls - Restless legs syndrome - Restless legs syndrome - Secondary malignant neoplasm of unspecified lung - Secondary malignant neoplasm of unspecified lung - Syncope and collapse - Syncope and collapse - Tubal ligation status - Tubal ligation status - Type 2 diabetes mellitus with diabetic chronic kidney disease - Type 2 diabetes mellitus with diabetic chronic kidney disease - Type 2 diabetes mellitus with hypoglycemia without coma - Type 2 diabetes mellitus with hypoglycemia without coma - Unspecified osteoarthritis, unspecified site - Unspecified osteoarthritis, unspecified site - Weakness [email or web address]
[2023-07-14] MEDS ORDERED: DEXAMETHASONE4 MG PO (13:30)
[2023-07-14 13:57] LABS: BASOPHILS 0.4 % (0-2); EOSINOPHILS 0.1 % (0-6); HEMATOCRIT 34.1 % (35.0-50.0); HEMOGLOBIN 11.5 g/dL (12.0-18.0); LYMPHOCYTES 25.5 % (24-44); MCH 30.4 (27-36); MCHC 33.6 g/dl (30-36); MCV 90.4 fl (81-99); MONOCYTES 5.8 % (0-12); NEUTROPHILS 68.2 % (39-80); PLATELET COUNT 223 K/uL (140-440); RBC 3.77 M/ul (4.3-5.7); RDW 15.3 (10.5-15.0)
[2023-07-14 14:12] LABS: ALBUMIN 2.4 g/dL (3.4-5.0); ALBUMIN/GLOBULIN RATIO 0.62 (1.1-2.4); BILIRUBIN, TOTAL 0.6 ng/dL (0.2-1.0); BUN/CREATININE RATIO 21.09 (6.0-28.6); CALCIUM 8.1 mg/dL (8.5-10.1); CREATININE, SERUM 1.28 mg/dL (0.55-1.02); MAGNESIUM 1.5 mg/dL (1.8-2.4); PROTEIN, TOTAL 6.3 g/dL (6.4-8.2)
[2023-07-14] MEDS ORDERED: OMEPRAZOLE20 MG PO (16:40)
[2023-07-14] MEDS ORDERED: DILAUDID2 MG PO (16:40)
[2023-07-14 16:58] VITALS: BP 155/88
== END 2023-07-14 16:59 | disposition home or self-care (01) ==
LOC: ED 13:21
PROVIDERS: Emergency Medicine
DX: C64.9 Malignant neoplasm of unspecified kidney, except renal pelvis (principal); C78.02 Secondary malignant neoplasm of left lung; C78.01 Secondary malignant neoplasm of right lung; C79.31 Secondary malignant neoplasm of brain; E11.22 Type 2 diabetes mellitus with diabetic chronic kidney disease; N18.4 Chronic kidney disease, stage 4 (severe); G20 Parkinson's disease; Z88.8 Allergy status to other drugs, medicaments and biological substances; Z79.899 Other long term (current) drug therapy; Z79.82 Long term (current) use of aspirin; Z79.4 Long term (current) use of insulin
CPT/HCPCS: 36415; 80053; 83735; 85025; 96374; 96375; 99285-25; C9113; J1170; J1790; J2405; J7030; J7040